=== PATIENT | female | born 1955 | race African-American/Black ===

== ENCOUNTER 2017-03-01 18:42 | Observation (INO) ==
[2017-03-01] MEDS ORDERED: FUROSEMIDE 100 MG/10 ML VIAL IV STA (19:05)
[2017-03-01] MEDS ORDERED: methylPREDNISolone SOD SUC 125 MG/2 ML VIAL IV STA (19:05)
--- NOTE | 2017-03-01 19:09 | EKG Report ---
Stationary ECG Study [facility] ER Test Date: 03/01/2017 6:57:15 PM Pat Name: ERUM LYNN Department: Room: Gender: F [employer] Operator: : [id number] Requested by: Gee Lucio Order Number: [id number] Reading MD: AMILCAR HAY Intervals Hardy Rate: 85 P: 69 NH: 138 QRS: 59 QRSD: 79 T: 64 QT: 373 QTc: 415 Interpretive Statements SINUS RHYTHM Electronically Signed On 03-01-17 19:25:10 CDT by AMILCAR HAY [email or web address]
[2017-03-01 19:23] LABS: Basophils % 0.2 % (0.0-0.8); Eosinophils # 0.1 10*3/uL (0.0-0.87); Eosinophils % 3.2 % (0.00-10.9); Hematocrit 27.8 VOL% (35.7-47.0); Hemoglobin 8.2 GM/DL (12.0-16.0); Immature Granulocytes % 0.2 %; Immature Granulocytes Absolute 0.01 #; Lymphocytes % 23.6 % (21.3-54.2); Mean Corpuscular HGB Conc 29.5 GM/DL (32-36); Mean Corpuscular Hemoglobin 25 PG (27-34); Mean Corpuscular Volume 85.3 FL (87-102); Mean Platelet Volume 9.4 FL (9.6-12.0); Monocytes # 0.5 10*3/uL (0.11-0.8); Neutrophils # 2.7 10*3/uL (1.4-7.4); Neutrophils % 61.8 % (38.7-73.9); Platelet Count 176 T/CUMM (130-400); Red Blood Count 3.26 MC/CUMM (3.8-5.5); Red Cell Distribution Width 18.1 % (9.3-17.3); White Blood Count 4.4 T/CUMM (4-12)
[2017-03-01] MEDS ORDERED: ALBUTEROL 2.5 MG/3 ML NEB RESP TX SCH (19:30)
[2017-03-01 19:35] LABS: D-Dimer 0.8 MG/L FEU; INR 1.1; PT Patient Result 11.4 SECS
[2017-03-01] MEDS ORDERED: methylPREDNISolone SOD SUC 125 MG/2 ML VIAL ONE (19:41)
[2017-03-01] MEDS ORDERED: FUROSEMIDE 40 MG/4 ML VIAL ONE (19:41)
[2017-03-01 19:44] LABS: Alanine Aminotransferase 19 U/L (13-56); Albumin 2.6 G/DL (3.4-5.0); Alkaline Phosphatase 588 U/L (45-117); Aspartate Amino Transferase 34 U/L (0-37); Bilirubin,Total < 0.39 MG/DL (0.2-1.0); Blood Urea Nitrogen 9 MG/DL (7-18); Calcium 7.2 MG/DL (8.5-10.1); Glucose 72 MG/DL (74-106); Potassium 3.8 MMOL/L (3.5-5.1); Sodium 143 MMOL/L (136-145); Total Protein 5.6 G/DL (6.4-8.3); Troponin I Only < 0.015 NG/ML (0.00-0.045)
--- NOTE | 2017-03-01 19:46 | Emergency Department Note ---
Rosanna Santos Rolonda, am scribing for, and in the presence of, Gee Evans MD 19:14. Cristina Santos Charles R, MD, personally performed the services described in this documentation, ascribed by Jose Ramon Marte in my presence, and it is both accurate and complete [id number] . Arrival - Arrival Chief Complaint: Shortness of Breath Stated Complaint: cant breathe ED Nursing Triage Note: reports cant catch her breath for the past five days. denies pain other than her back pain Mode of Arrival: Wheelchair Limitations: No Limitations Source: Patient, Old Records Reviewed, RN Notes Reviewed Time Seen by Provider: 03/01/17 18:57 - History of Present Illness HPI Narrative: Pt is a 61 y/o female who presents to the ED via wheelchair with c/o SOB with an onset of days ago. Pt has a PMHx of Chemotherapy, Parathyroid Issues, and currently f/u with PCP in [place] for Pancreatic Cancer. She states that the SOB worsens while laying supine. Daughter states that pt had a previous bone scan, which was negative, and a scan in the leg for blood clots. Pt denies being a smoker. No other complaint/pain in ED. Onset (ago): day(s) Consistency: constant Severity: moderate Severity scale (1-10): 4 Date of Last Menstrual Period: menopause Allergies/Adverse Reactions: Allergies Allergy/AdvReac Type Severity Reaction Status Date / Time Sulfa (Sulfonamide Allergy Unknown/Unable Verified 09/01/15 12:46 Antibiotics) to obtain aspirin AdvReac Nausea Verified 09/01/15 12:46 Iodinated Contrast Media - AdvReac ANAPHYLAXIS Verified 09/01/15 12:46 Oral and Home Medications: Home Medications Medication Instructions Recorded Confirmed Type Lubiprostone [Amitiza] 24 mcg PO BID 05/15/15 03/01/17 History Magnesium Oxide [Magox 400] 400 mg PO BID 05/15/15 03/01/17 History Morphine Sulfate [Morphine Sulfate 30 mg PO BID 05/15/15 03/01/17 History ER] Ondansetron HCl 8 mg PO Q8HR PRN 05/15/15 03/01/17 History Oxycodone HCl/Acetaminophen 1 each PO Q4-6H PRN 05/15/15 03/01/17 History [Oxycodone-Acetaminophen 10-325] Pantoprazole Sodium [Protonix] 40 mg PO DAILY 05/15/15 03/01/17 History Potassium Chloride Cap/Tab [K Dur] 10 meq PO DAILY 05/15/15 03/01/17 History Sertraline [Zoloft] 200 mg PO DAILY 05/15/15 03/01/17 History Tolterodine Tartrate [Tolterodine 2 mg PO BID 05/15/15 03/01/17 History Tartrate ER] Trazodone HCl 100 mg PO BEDTIME 05/15/15 03/01/17 History Polyethylene Glycol Powder 1 packet PO BID 09/06/15 03/01/17 History [Miralax] Tamsulosin [Flomax] 0.4 mg PO BEDTIME 08/31/16 03/01/17 History fentaNYL [Fentanyl 100 mcg/hr 100 mcg TRANSDERM Q3DAY 09/03/16 03/01/17 History Patch] Gabapentin 600 mg PO BID 03/01/17 03/01/17 History Review of System - Review of System 12 point system: reviewed and no additional remarkable complaints except as stated - Review of System Constitutional: Absent: chills, fever Head/Ears/Nose/Throat: Absent: earache, epistaxis Respiratory: Present: respiratory distress (SOB). Absent: cough Cardiovascular: Present: chest pain. Absent: palpitations, dyspnea on exertion Gastrointestinal: Absent: abdominal pain, nausea, vomiting, diarrhea Musculoskeletal: Absent: arm pain, back pain, leg pain, neck pain Skin: Absent: rash Neurological: Absent: headache, weakness Psychiatric: Absent: anxiety Medical,Surgical,& Family Hx - Medical History Psychological: History of: Depression Gastrointestinal: History of: Gastrointestinal Cancer (pancreatic cancer-2014 Dx ), GI Problems Musculoskeletal: History of: Musculoskeletal Problems Other: History of: Miscellaneous Medical Problems (09/03/16 Sched for Bone marrow Bx RAD Abnormal CT) - Surgical History Thoracic Surgeries: Patient denies;: Organ Transplant Abdominal Surgeries: Surgical HX of: Hernia Repair (Umbilical Hernia) - Family History Family History: Reports;: Family Cancer (mother and sister), Family Diabetes ( sister daughter), Family Hypertension (mother) - Social History Smoking Status: Never smoker Exam Vital Signs: Vital Signs Temperature 98.7 F 03/01/17 18:43 Pulse Rate 84 03/01/17 19:40 Respiratory Rate 18 03/01/17 19:40 Blood Pressure 118/58 03/01/17 18:43 O2 Sat by Pulse Oximetry 100 03/01/17 19:40 - General General appearance: alert, in no apparent distress - Head Head exam: Present: atraumatic, normocephalic - Eye Eye exam: Present: PERRL, EOMI - ENT ENT exam: Present: mucous membranes moist. Absent: mucous membranes dry - Neck Neck exam: Present: full ROM. Absent: tenderness - Chest Chest inspection: Present: symmetric chest wall rise. Absent: tenderness - Respiratory Respiratory exam: Present: accessory muscle use, rhonchi (at the base) - Cardiovascular Cardiovascular exam: Present: normal rhythm, tachycardia - Abdominal Exam Abdominal exam: Present: soft, normal bowel sounds. Absent: tenderness - Extremities Exam Extremities exam: Present: pedal edema (+1 lower extremities) - Back Exam Back exam: Present: full ROM. Absent: tenderness - Neurological Exam Neurological exam: Present: alert, oriented X3, CN II-XII intact - Psychiatric Psychiatric exam: Present: normal affect, normal mood - Skin Skin exam: Present: warm, dry, intact, normal color. Absent: rash Course - Consultations Consultation #1: Dr. Solano will admit for Dr. Barbosa Time: 22:27 Results - Labs CBC & BMP: 03/01/17 18:55 03/01/17 18:55 Lab Results: I have reviewed the patients labs Labs: Laboratory Tests 03/01/17 18:55 WBC 4.4 RBC 3.26 L Hgb 8.2 L Hct 27.8 L MCV 85.3 L MCH 25 L MCHC 29.5 L RDW 18.1 H MPV 9.4 L Lymph # (Auto) 1.0 L Laboratory Tests 03/01/17 03/01/17 18:55 18:55 INR 1.1 PT Patient/Control Mix 11.4 D-Dimer, Quantitative 0.8 Sodium 143 Potassium 3.8 Chloride 111 H Carbon Dioxide 24 BUN 9 GFR Calculation 95 Glucose 72 L Calcium 7.2 L Alkaline Phosphatase 588 H Total Protein 5.6 L Albumin 2.6 L Albumin/Globulin Ratio 0.8 L Laboratory Tests 03/01/17 19:05 Urine pH 7.0 Ur Specific Sage 1.005 Urine Protein Negative Urine Glucose (UA) Negative Urine Ketones Negative Urine Blood Negative Urine Nitrate Negative Urine Bilirubin Negative Urine Urobilinogen < 2.0 H Urine Leukocytes Negative Urine WBC <1 Ur Squamous Epith Cells Occasional Urine Mucus Occasional Ur Culture Indicated? Not indicated - Diagnostic Findings Procedure: Chest x-ray: report reviewed by me (No acute abnormality. ) Disposition Clinical Impression: Primary pancreatic cancer , Generalized weakness, Acute dyspnea, Anemia of chronic disease Case discussed with: patient, patient's family Disposition: Still a Patient Condition: Stable Time of Disposition: 22:28
--- NOTE | 2017-03-01 20:19 | XRay Report ---
PA and lateral chest. Indication: Shortness of breath. Comparison: September 01, 2015. The heart is normal in size. A subclavian line distal tip is in the right atrium. The pulmonary vasculature is normal. The lung carter are clear. There is interposition of colon above the liver. Surgical clips are noted in the left upper quadrant. Osseous structures are stable with increased sclerosis, particularly involving the vertebral column. Impression: No acute abnormality. PROCEDURE INTERPRETED AT [facility] DEPARTMENT OF RADIOLOGY Final Report Signed by: Dr. Neeru Moreira
[2017-03-01 20:41] LABS: Apearance,Urine CLEAR (Clear); Bilirubin,Urine Negative (Negative); Blood, Urine Negative (Negative); Glucose,Urine (UA) Negative (Negative); Ketones,Urine Negative (Negative); Mucus,Urine Occasional /LPF (Occasional); Nitrite,Urine Negative (Negative); Protein,Urine Negative; Squamous Epithelial Cell,Urine Occasional /HPF (0-10); Urine Color Colorless (Yellow); Urine Specific Gravity 1.005 (1.001-1.035); Urine Urobilinogen < 2.0 EU/DL (0.2-1.0); WBC,Urine <1 /HPF (0-6)
[2017-03-01] MEDS ORDERED: ONDANSETRON 4 MG/2 ML VIAL IV STA (21:31)
[2017-03-01] MEDS ORDERED: HYDROmorphone 2 MG/1 ML VIAL IV STA (21:31)
[2017-03-01] MEDS ORDERED: ONDANSETRON 4 MG/2 ML VIAL ONE (21:31)
[2017-03-01] MEDS ORDERED: HYDROmorphone 2 MG/1 ML VIAL ONE (21:31)
[2017-03-02] MEDS ORDERED: LACTULOSE 20 GM/30 ML UDCUP PO PRN (00:34)
[2017-03-02] MEDS ORDERED: MYLANTA/LIDO VISC 2:1 300 ML BOTTLE SWISH/SPIT PRN (00:34)
[2017-03-02] MEDS ORDERED: TEMAZEPAM 7.5 MG CAPSULE PO PRN (00:34)
[2017-03-02] MEDS ORDERED: BENZTROPINE 2 MG/2 ML AMP IV PRN (00:34)
[2017-03-02] MEDS ORDERED: ALPRAZolam 0.25 MG TABLET PO PRN (00:34)
[2017-03-02] MEDS ORDERED: MAGNESIUM HYDROXIDE SUSP 30 ML UDCUP PO PRN (00:34)
[2017-03-02] MEDS ORDERED: traMADol 50 MG TABLET PO PRN (00:34)
[2017-03-02] MEDS ORDERED: PROMETHAZINE INJ 25 MG in SODIUM CHLORIDE 0.9% 50 ML IV PRN (00:34)
[2017-03-02] MEDS ORDERED: chlorproMAZINE 25 MG TABLET PO PRN (00:34)
[2017-03-02] MEDS ORDERED: MYLANTA/LIDO VISC 2:1 300 ML BOTTLE SWISH/SWAL PRN (00:34)
[2017-03-02] MEDS ORDERED: SODIUM CHLORIDE 0.9% 250 ML IV PRN (00:34)
[2017-03-02] MEDS ORDERED: ONDANSETRON 4 MG/2 ML VIAL IV PRN (00:34)
[2017-03-02] MEDS ORDERED: ALUMINUM/MAGNES/SIMETH MAX STR 30 ML UDCUP PO PRN (00:34)
[2017-03-02] MEDS ORDERED: guaiFENesin 200 MG/10 ML UDCUP PO PRN (00:34)
[2017-03-02] MEDS ORDERED: diphenhydrAMINE CAP 25 MG CAPSULE PO PRN (00:34)
[2017-03-02] MEDS ORDERED: ACETAMINOPHEN 325 MG TABLET PO PRN (00:34)
[2017-03-02] MEDS ORDERED: ONDANSETRON 4 MG TABLET PO PRN (00:34)
[2017-03-02] MEDS ORDERED: chlorproMAZINE INJ 50 MG in SODIUM CHLORIDE 0.9% 100 ML IV PRN (00:34)
[2017-03-02] MEDS ORDERED: chlorproMAZINE INJ 25 MG in SODIUM CHLORIDE 0.9% 100 ML IV PRN (00:34)
[2017-03-02] MEDS ORDERED: LOPERAMIDE 2 MG CAPSULE PO PRN ×2 (00:34)
[2017-03-02] MEDS: oxyCODONE/ACETAMINOPHEN 5-325 MG TABLET PO PRN ×2 (02:24→07:37)
[2017-03-02] MEDS: SODIUM CHLORIDE 0.9% 1,000 ML IV SCH ×2 (02:26→17:09)
[2017-03-02 08:18] LABS: Basophils % 0.1 % (0.0-0.8); Hematocrit 35.1 VOL% (35.7-47.0); Hemoglobin 10.9 GM/DL (12.0-16.0); Immature Granulocytes % 0.4 %; Immature Granulocytes Absolute 0.03 #; Lymphocytes # 0.4 10*3/uL (1.4-4.0); Lymphocytes % 5.5 % (21.3-54.2); Mean Corpuscular HGB Conc 31.1 GM/DL (32-36); Mean Corpuscular Hemoglobin 26 PG (27-34); Mean Platelet Volume 9.6 FL (9.6-12.0); Monocytes # 0.3 10*3/uL (0.11-0.8); Monocytes % 4.1 % (1.7-12.7); Neutrophils # 6.3 10*3/uL (1.4-7.4); Neutrophils % 89.9 % (38.7-73.9); Platelet Count 188 T/CUMM (130-400); Red Blood Count 4.13 MC/CUMM (3.8-5.5); Red Cell Distribution Width 17.2 % (9.3-17.3); White Blood Count 7.1 T/CUMM (4-12)
[2017-03-02] MEDS ORDERED: fentaNYL 100 MCG/HR PATCH TRANSDERM SCH (09:00)
[2017-03-02] MEDS ORDERED: PANTOPRAZOLE 40 MG VIAL IV SCH (09:00)
[2017-03-02] MEDS: MORPHINE ER 30 MG TABLET PO SCH ×2 (09:07→20:49)
[2017-03-02] MEDS: MAGNESIUM OXIDE 400 MG TABLET PO SCH ×2 (09:07→20:48)
[2017-03-02] MEDS: SERTRALINE 100 MG TABLET PO SCH (09:07)
[2017-03-02] MEDS: PANTOPRAZOLE 40 MG TABLET PO SCH (09:07)
[2017-03-02] MEDS: POTASSIUM CHLORIDE 10 MEQ TABLET PO SCH (09:07)
[2017-03-02] MEDS: TOLTERODINE LA 2 MG CAPSULE PO SCH ×2 (09:07→20:52)
[2017-03-02] MEDS: LUBIPROSTONE 24 MCG CAPSULE PO SCH ×2 (09:08→20:48)
[2017-03-02] MEDS: GABAPENTIN 600 MG TABLET PO SCH ×2 (09:08→20:49)
[2017-03-02] MEDS: POLYETHYLENE GLYCOL POWDER 17 GM PACK PO SCH ×2 (09:08→20:51)
--- NOTE | 2017-03-02 09:23 | Oncology Progress Note ---
Oncology Subjective PN Interval history: Ms. Page was admitted earlier this morning for outpatient observation because of increasing dyspnea and because of the fact that she has new onset of her abdominal pain. She is on palliative chemotherapy for metastatic pancreatic cancer that she has had for approximately 2 years. She has bone metastases and she has been having pain from the bony metastases. She says she received chemotherapy and evidently, after further investigation, she is on Gemzar as a single agent. She has a history of elevated parathyroid hormone which could be related to her new abdominal pain.However, her serum calcium is low at 7.2 with a low serum albumin of 2.6. I note that her alkaline phosphatase is 588 today; it was 473 on February 13, 2017. She was admitted with hemoglobin of 8.2 and a normal white cell count 4400 with a platelet count of 176,000. She was evaluated for DVT recently. She was having dyspnea at home. Patient admitted with pancreatic cancer. She has a 2 year history of metastatic pancreatic cancer with bone metastasis. She is followed in [place] by her primary care physician. A chest x-ray done in the emergency room on the evening prior to this admission demonstrated no acute abnormalities. An EKG demonstrated a heart rate of 85 bpm with normal sinus rhythm and an essentially normal EKG. Following transfusion, her blood work includes a hemoglobin of 10.9 with a white cell count of 7100 and a platelet count of 188,000. Past medical history Allergies: Sulfa, aspirin, iodine. She has apparent metabolic bone disease that may or may not be related to hypercalcemia. She has a history of chronic anemia due to chemotherapy and her chronic illness She has problems with chronic nausea and occasional vomiting She has bone pain primarily in her hip felt to be due to metastatic disease Prior surgical history includes an umbilical hernia repair social history She has never smoked family history: Family history is positive for cancer in her mother and a sister, diabetes and a sister and her daughter and hypertension in her mother ROS General: No history of fever or chills. She has had nausea and decreased appetite. ENT: No history of epistaxis earaches or sinus infections Pulmonary: She has a history of upper chest pain has been going on for a while and appears to be chest wall pain. She says that she has not had a cough, sputum production or hemoptysis. Cardiovascular: No history of cardiac syncope, palpitations or cardiac pain. GI: She has abdominal pain that has recently become significant and accompanied by nausea but little vomiting and there is no GI bleeding, either upper or lower. Also no diarrhea currently. Musculoskeletal: She has a history of long-standing bone pain related to her metastatic disease. : No history of kidney stones dysuria or hematuria. Neurologic: No history of seizures, convulsions or paralysis. Psychiatric: Positive for depression but negative for acute psychiatric illness Physical examination: General: The patient appears chronically ill but actually does not appear to be in any acute distress. Eyes: Normal lids and conjunctivae. ENT: Her oral mucosa and pharynx are normal. Her trachea is midline. Her hearing is normal. Neck: Thyroid is normal. No neck masses. Lungs/chest: She is tender over the right upper anterior chest. I palpate no masses. Breath sounds are slightly coarse and there are couple of loud rhonchi that clear quickly after she takes a couple of deep breaths. Cardiovascular: Her heart rhythm is regular without murmur, gallop or rub. There is no jugular venous distention, clubbing, cyanosis or edema. Abdomen: She is tender over the entire upper epigastric, right upper quadrant and left upper quadrant region with normal bowel sounds. I palpate no ascites and I cannot definitely feel any masses but she is tender. Musculoskeletal: Generalized muscle weakness without focal muscle atrophy or bone or joint deformity. Neurologic: Cranial nerves II through XII are intact. There are no focal neurologic deficits. Nodes: I palpate no submandibular, anterior or posterior cervical, supraclavicular or axillary adenopathy. Skin: Cursory examination is normal. Psychiatric: She cannot remember some of the details of her treatment that she appears to be oriented and alert otherwise. Impression: Symptomatic anemia that has now improved with transfusion of red cells new onset upper abdominal pain pancreatic adenocarcinoma on palliative chemotherapy bone metastases with bone pain secondarily history of metabolic bone disease I am checking an amylase and lipase and will recheck lab work tomorrow. I will keep her on observation today but we may convert her to inpatient for further evaluation if the abdominal pain does not improve. There is some gastroenteritis that is going around but she is not having lower GI problems. Exam - Constitutional Vitals: Period Temp Pulse Resp BP Sys/Hyatt Pulse Ox Last 24 Hr 97 F-98.8 F 84-124 18-24 99-135/50-67 92-100 Results - Labs CBC & BMP: 03/02/17 08:05 03/01/17 18:55
[2017-03-02] MEDS: DEXT 5% NACL 0.45% KCL 20 MEQ 20 MEQ/1,000 ML BAG IV SCH ×2 (13:12→20:49)
[2017-03-02] MEDS: SUCRALFATE 1 GM/10 ML UDCUP PO SCH ×2 (17:12→20:49)
[2017-03-02] MEDS ORDERED: traZODone 50 MG TABLET PO SCH (21:00)
[2017-03-02] MEDS ORDERED: TAMSULOSIN 0.4 MG CAPSULE PO SCH (21:00)
[2017-03-03 05:16] LABS: Basophils % 0.2 % (0.0-0.8); Eosinophils # 0.1 10*3/uL (0.0-0.87); Eosinophils % 1.5 % (0.00-10.9); Hematocrit 33.5 VOL% (35.7-47.0); Hemoglobin 10.4 GM/DL (12.0-16.0); Immature Granulocytes % 0.4 %; Immature Granulocytes Absolute 0.02 #; Lymphocytes # 1.1 10*3/uL (1.4-4.0); Lymphocytes % 20.9 % (21.3-54.2); Mean Corpuscular Hemoglobin 26 PG (27-34); Mean Platelet Volume 9.7 FL (9.6-12.0); Monocytes # 0.5 10*3/uL (0.11-0.8); Monocytes % 8.5 % (1.7-12.7); Neutrophils # 3.6 10*3/uL (1.4-7.4); Neutrophils % 68.5 % (38.7-73.9); Platelet Count 177 T/CUMM (130-400); Red Blood Count 3.94 MC/CUMM (3.8-5.5); Red Cell Distribution Width 17.7 % (9.3-17.3); White Blood Count 5.3 T/CUMM (4-12)
[2017-03-03] MEDS: DEXT 5% NACL 0.45% KCL 20 MEQ 20 MEQ/1,000 ML BAG IV SCH (05:25)
[2017-03-03 05:42] LABS: Alanine Aminotransferase 20 U/L (13-56); Albumin 2.6 G/DL (3.4-5.0); Alkaline Phosphatase 609 U/L (45-117); Aspartate Amino Transferase 35 U/L (0-37); Bilirubin,Total < 0.39 MG/DL (0.2-1.0); Blood Urea Nitrogen 6 MG/DL (7-18); Glucose 116 MG/DL (74-106); Osmolality,Calculated 284.8 MOS/KG (273-304); Potassium 4.3 MMOL/L (3.5-5.1); Sodium 144 MMOL/L (136-145); Total Protein 5.3 G/DL (6.4-8.3)
[2017-03-03] MEDS: PANTOPRAZOLE 40 MG TABLET PO SCH (09:12)
[2017-03-03] MEDS: MORPHINE ER 30 MG TABLET PO SCH (09:12)
[2017-03-03] MEDS: SERTRALINE 100 MG TABLET PO SCH (09:12)
[2017-03-03] MEDS: LUBIPROSTONE 24 MCG CAPSULE PO SCH (09:13)
[2017-03-03] MEDS: MAGNESIUM OXIDE 400 MG TABLET PO SCH (09:13)
[2017-03-03] MEDS: POLYETHYLENE GLYCOL POWDER 17 GM PACK PO SCH (09:13)
[2017-03-03] MEDS: SUCRALFATE 1 GM/10 ML UDCUP PO SCH (09:13)
[2017-03-03] MEDS: GABAPENTIN 600 MG TABLET PO SCH (09:13)
[2017-03-03] MEDS: POTASSIUM CHLORIDE 10 MEQ TABLET PO SCH (09:13)
[2017-03-03] MEDS: TOLTERODINE LA 2 MG CAPSULE PO SCH (09:21)
--- NOTE | 2017-03-03 10:01 | Oncology Progress Note ---
Oncology Subjective PN Interval history: Ms. Page was admitted with increasing abdominal pain. This is improved although she continues to have some abdominal tenderness. She has metastatic pancreatic cancer with bone metastases and she has stable right upper anterior chest wall pain. The abdominal pain is of newer onset and it has improved. She has had no diarrhea and she has had no hematemesis, melena or hematochezia. I am going to instruct her to take Mylanta or Pepto-Bismol as needed since the Carafate seems to be improving her abdominal pain. She has bowel sounds. She winces before he even actually palpate her abdomen and I cannot check her abdomen well because of this. Her lungs are clear. Her heart sounds are normal. She is oriented and alert. She is clearly anxious but evidently this is long-standing. Vital signs are normal with a temp of 97.4, pulse of 82 and blood pressure 112/ 56. Respiratory rate 20. Lab work today includes a normal white cell count of 5300 with a platelet count of 177,000 and a hemoglobin that is low at 10.4 but improved over admission when it was 8.2. Amylase and lipase done yesterday were both normal. The alkaline phosphatase is 609 with an LDH was 283. The serum creatinine is 0.5. She has an appointment to see Dr. Barbosa later this month, around the but I am instructing her to call the office and talk with his nurse Saturday morning about moving the appointment. I have also told her that if she has further problems that she can return. Exam - Constitutional Vitals: Period Temp Pulse Resp BP Sys/Hyatt Pulse Ox Last 24 Hr 97.2 F-99.5 F 82-92 16-20 93-133/51-67 94-98 Results - Labs CBC & BMP: 03/03/17 04:45 03/03/17 04:45
[2017-03-03 11:02] VITALS: BP 103/59
[2017-03-03] MEDS ORDERED: HEPARIN LOCK FLUSH 500 UNIT/5 ML SYRINGE IV ONE (12:25)
== END 2017-03-03 12:48 | disposition home or self-care (01) ==
LOC: N.ED 18:42 → N.EDINP 18:42 → N.4E 03-02 00:38
PROVIDERS: ADMIT Specialist; ATTEND Specialist

== ENCOUNTER 2017-09-25 09:28 | Inpatient (IN) ==
[2017-09-25] MEDS ORDERED: ONDANSETRON 4 MG/2 ML VIAL IV STA ×2 (10:20→13:26)
[2017-09-25] MEDS ORDERED: SODIUM CHLORIDE 0.9% 1,000 ML IV STA (10:20)
[2017-09-25] MEDS ORDERED: HYDROmorphone 2 MG/1 ML VIAL ONE ×2 (11:00→12:06)
[2017-09-25] MEDS ORDERED: ONDANSETRON 4 MG/2 ML VIAL ONE ×2 (11:00→13:27)
[2017-09-25] MEDS: HYDROmorphone 2 MG/1 ML VIAL IV PRN ×5 (11:18→22:08)
[2017-09-25 11:28] LABS: Basophils % 0.1 % (0.0-0.8); Hematocrit 33.9 VOL% (35.7-47.0); Hemoglobin 10.5 GM/DL (12.0-16.0); Immature Granulocytes % 0.5 %; Immature Granulocytes Absolute 0.05 #; Lymphocytes # 0.7 10*3/uL (1.4-4.0); Lymphocytes % 6.4 % (21.3-54.2); Mean Corpuscular Hemoglobin 27 PG (27-34); Mean Corpuscular Volume 87.6 FL (87-102); Mean Platelet Volume 9.9 FL (9.6-12.0); Monocytes # 0.9 10*3/uL (0.11-0.8); Monocytes % 8.2 % (1.7-12.7); Neutrophils # 9.2 10*3/uL (1.4-7.4); Neutrophils % 84.8 % (38.7-73.9); Platelet Count 254 T/CUMM (130-400); Red Blood Count 3.87 MC/CUMM (3.8-5.5); Red Cell Distribution Width 15.4 % (9.3-17.3); White Blood Count 10.8 T/CUMM (4-12)
[2017-09-25 11:46] LABS: Apearance,Urine CLEAR (Clear); Bilirubin,Urine Negative (Negative); Blood, Urine Small mg/dL (Negative); Glucose,Urine (UA) Negative (Negative); Ketones,Urine 5 mg/dL (Negative); Nitrite,Urine Negative (Negative); Protein,Urine Negative; RBC,Urine 2 /HPF (0-4); Squamous Epithelial Cell,Urine Occasional /HPF (0-10); Urine Color Straw (Yellow); Urine Specific Gravity 1.006 (1.001-1.035); Urine Urobilinogen < 2.0 EU/DL (0.2-1.0); WBC,Urine <1 /HPF (0-6)
[2017-09-25 12:04] LABS: Bilirubin,Total 0.4 MG/DL (0.2-1.0); Calcium 8.2 MG/DL (8.5-10.1); Potassium 3.5 MMOL/L (3.5-5.1); Total Protein 6.2 G/DL (6.4-8.3)
[2017-09-25] MEDS ORDERED: LOPERAMIDE 2 MG CAPSULE PO PRN ×2 (14:45)
[2017-09-25] MEDS ORDERED: MYLANTA/LIDO VISC 2:1 300 ML BOTTLE SWISH/SWAL PRN (14:45)
[2017-09-25] MEDS ORDERED: ACETAMINOPHEN 325 MG TABLET PO PRN (14:45)
[2017-09-25] MEDS ORDERED: ONDANSETRON 4 MG/2 ML VIAL IV PRN (14:45)
[2017-09-25] MEDS ORDERED: MAGNESIUM HYDROXIDE SUSP 30 ML UDCUP PO PRN (14:45)
[2017-09-25] MEDS ORDERED: TEMAZEPAM 7.5 MG CAPSULE PO PRN (14:45)
[2017-09-25] MEDS ORDERED: guaiFENesin 200 MG/10 ML UDCUP PO PRN (14:45)
[2017-09-25] MEDS ORDERED: chlorproMAZINE INJ 50 MG in SODIUM CHLORIDE 0.9% 100 ML IV PRN (14:45)
[2017-09-25] MEDS ORDERED: ALPRAZolam 0.25 MG TABLET PO PRN (14:45)
[2017-09-25] MEDS ORDERED: diphenhydrAMINE CAP 25 MG CAPSULE PO PRN (14:45)
[2017-09-25] MEDS ORDERED: BENZTROPINE 2 MG/2 ML AMP IV PRN (14:45)
[2017-09-25] MEDS ORDERED: MYLANTA/LIDO VISC 2:1 300 ML BOTTLE SWISH/SPIT PRN (14:45)
[2017-09-25] MEDS ORDERED: LACTULOSE 20 GM/30 ML UDCUP PO PRN (14:45)
[2017-09-25] MEDS ORDERED: SODIUM PHOSPHATE ENEMA 133 ML BOTTLE RECTAL STA (14:45)
[2017-09-25] MEDS ORDERED: chlorproMAZINE 25 MG TABLET PO PRN (14:45)
[2017-09-25] MEDS ORDERED: ALUMINUM/MAGNES/SIMETH MAX STR 30 ML UDCUP PO PRN (14:45)
[2017-09-25] MEDS ORDERED: chlorproMAZINE INJ 25 MG in SODIUM CHLORIDE 0.9% 100 ML IV PRN (14:45)
[2017-09-25] MEDS ORDERED: traMADol 50 MG TABLET PO PRN (14:45)
[2017-09-25] MEDS ORDERED: HYDROmorphone 2 MG/1 ML VIAL IV SCH (15:30)
[2017-09-25] MEDS: DEXTROSE 5% NACL 0.45% 1,000 ML IV SCH ×2 (15:37→23:42)
[2017-09-25] MEDS: PROMETHAZINE INJ 25 MG in SODIUM CHLORIDE 0.9% 50 ML IV PRN ×2 (16:07→22:10)
[2017-09-26] MEDS: HYDROmorphone 2 MG/1 ML VIAL IV PRN ×4 (00:52→16:30)
[2017-09-26] MEDS: PROMETHAZINE INJ 25 MG in SODIUM CHLORIDE 0.9% 50 ML IV PRN ×2 (04:06→10:40)
[2017-09-26] MEDS: DEXTROSE 5% NACL 0.45% 1,000 ML IV SCH ×3 (06:50→21:28)
[2017-09-26] MEDS ORDERED: MAGNESIUM SULF RIDER 4 GM in PREMIX 1 EACH IV ONE (08:29)
[2017-09-26] MEDS ORDERED: METHYLNALTREXONE 12 MG/0.6 ML VIAL SUBCUT ONE (08:33)
[2017-09-26] MEDS ORDERED: ONDANSETRON 4 MG TABLET PO PRN (08:34)
[2017-09-26] MEDS ORDERED: oxyCODONE/ACETAMINOPHEN 5-325 MG TABLET PO PRN (08:34)
[2017-09-26] MEDS ORDERED: PROMETHAZINE 25 MG TABLET PO SCH (09:00)
[2017-09-26] MEDS: TOLTERODINE 2 MG TABLET PO SCH ×2 (11:00→21:24)
[2017-09-26] MEDS: METOCLOPRAMIDE 10 MG TABLET PO SCH ×2 (11:00→21:21)
[2017-09-26] MEDS: LUBIPROSTONE 24 MCG CAPSULE PO SCH ×2 (11:00→21:22)
[2017-09-26] MEDS: GABAPENTIN 600 MG TABLET PO SCH ×2 (11:00→21:22)
[2017-09-26] MEDS: SERTRALINE 100 MG TABLET PO SCH (11:00)
[2017-09-26] MEDS: PANTOPRAZOLE 40 MG TABLET PO SCH (11:01)
[2017-09-26] MEDS: MORPHINE ER 30 MG TABLET PO SCH ×2 (11:01→21:22)
[2017-09-26] MEDS: MAGNESIUM OXIDE 400 MG TABLET PO SCH ×2 (11:01→21:22)
[2017-09-26] MEDS ORDERED: LACTULOSE 20 GM/30 ML UDCUP PO ONE (14:49)
[2017-09-26] MEDS: FONDAPARINUX 2.5 MG/0.5 ML SYRINGE SUBCUT SCH (16:24)
[2017-09-26] MEDS: CIPROFLOXACIN INJ 400 MG in PREMIX 1 EACH IV SCH (16:25)
[2017-09-26] MEDS: traZODone 50 MG TABLET PO SCH (21:22)
[2017-09-26] MEDS: PROMETHAZINE 25 MG TABLET PO PRN (21:22)
[2017-09-26] MEDS: TAMSULOSIN 0.4 MG CAPSULE PO SCH (21:22)
[2017-09-27 06:14] LABS: Basophils % 0.2 % (0.0-0.8); Eosinophils % 0.3 % (0.00-10.9); Hematocrit 35.2 VOL% (35.7-47.0); Hemoglobin 11.3 GM/DL (12.0-16.0); Immature Granulocytes % 0.6 %; Immature Granulocytes Absolute 0.07 #; Lymphocytes # 0.8 10*3/uL (1.4-4.0); Lymphocytes % 7.6 % (21.3-54.2); Mean Corpuscular HGB Conc 32.1 GM/DL (32-36); Mean Corpuscular Hemoglobin 27 PG (27-34); Mean Corpuscular Volume 84.6 FL (87-102); Mean Platelet Volume 10.1 FL (9.6-12.0); Monocytes # 1.3 10*3/uL (0.11-0.8); Neutrophils # 8.7 10*3/uL (1.4-7.4); Neutrophils % 79.3 % (38.7-73.9); Platelet Count 244 T/CUMM (130-400); Red Blood Count 4.16 MC/CUMM (3.8-5.5); Red Cell Distribution Width 15.4 % (9.3-17.3)
[2017-09-27 07:18] LABS: Albumin 2.8 G/DL (3.4-5.0); Bilirubin,Total 0.4 MG/DL (0.2-1.0); Calcium 8.3 MG/DL (8.5-10.1); Osmolality,Calculated 267.2 MOS/KG (273-304); Potassium 3.2 MMOL/L (3.5-5.1); Total Protein 5.8 G/DL (6.4-8.3)
[2017-09-27] MEDS: TOLTERODINE 2 MG TABLET PO SCH ×2 (10:00→22:04)
[2017-09-27] MEDS: PANTOPRAZOLE 40 MG TABLET PO SCH (10:00)
[2017-09-27] MEDS: GABAPENTIN 600 MG TABLET PO SCH ×2 (10:00→22:05)
[2017-09-27] MEDS: MAGNESIUM OXIDE 400 MG TABLET PO SCH ×2 (10:00→22:05)
[2017-09-27] MEDS: LUBIPROSTONE 24 MCG CAPSULE PO SCH ×2 (10:00→22:04)
[2017-09-27] MEDS: PROMETHAZINE 25 MG TABLET PO PRN (10:00)
[2017-09-27] MEDS: SERTRALINE 100 MG TABLET PO SCH (10:01)
[2017-09-27] MEDS: METOCLOPRAMIDE 10 MG TABLET PO SCH ×2 (10:01→22:05)
[2017-09-27] MEDS: CIPROFLOXACIN INJ 400 MG in PREMIX 1 EACH IV SCH ×2 (10:01→21:54)
[2017-09-27] MEDS: fentaNYL 12 MCG/HR PATCH TRANSDERM SCH (10:09)
[2017-09-27] MEDS: PANTOPRAZOLE 40 MG VIAL IV SCH (10:11)
[2017-09-27] MEDS: MORPHINE ER 30 MG TABLET PO SCH (10:11)
[2017-09-27] MEDS: PROMETHAZINE INJ 25 MG in SODIUM CHLORIDE 0.9% 50 ML IV PRN (14:46)
[2017-09-27] MEDS: FONDAPARINUX 2.5 MG/0.5 ML SYRINGE SUBCUT SCH (14:49)
[2017-09-27] MEDS: DEXTROSE 5% NACL 0.45% 1,000 ML IV SCH (17:46)
[2017-09-27] MEDS: HYDROmorphone 2 MG/1 ML VIAL IV PRN (21:53)
[2017-09-27] MEDS: traZODone 50 MG TABLET PO SCH (22:04)
[2017-09-27] MEDS: TAMSULOSIN 0.4 MG CAPSULE PO SCH (22:04)
[2017-09-28] MEDS: PROMETHAZINE INJ 25 MG in SODIUM CHLORIDE 0.9% 50 ML IV PRN (03:18)
[2017-09-28] MEDS: HYDROmorphone 2 MG/1 ML VIAL IV PRN ×3 (07:39→23:45)
[2017-09-28] MEDS: LUBIPROSTONE 24 MCG CAPSULE PO SCH ×2 (08:11→22:08)
[2017-09-28] MEDS: TOLTERODINE 2 MG TABLET PO SCH ×2 (08:11→22:08)
[2017-09-28] MEDS: SERTRALINE 100 MG TABLET PO SCH ×2 (08:12→14:26)
[2017-09-28] MEDS: METOCLOPRAMIDE 10 MG TABLET PO SCH ×2 (08:12→22:09)
[2017-09-28] MEDS: MAGNESIUM OXIDE 400 MG TABLET PO SCH ×2 (08:12→22:09)
[2017-09-28] MEDS: GABAPENTIN 600 MG TABLET PO SCH ×2 (08:12→22:09)
[2017-09-28] MEDS: PANTOPRAZOLE 40 MG VIAL IV SCH (08:52)
[2017-09-28] MEDS: DEXTROSE 5% NACL 0.45% 1,000 ML IV SCH (08:53)
[2017-09-28] MEDS: CIPROFLOXACIN INJ 400 MG in PREMIX 1 EACH IV SCH ×2 (08:53→22:10)
[2017-09-28] MEDS: PROMETHAZINE 25 MG TABLET PO PRN (14:28)
[2017-09-28] MEDS ORDERED: MORPHINE 2 MG/1 ML SYRINGE IV ONE (14:56)
[2017-09-28] MEDS: FONDAPARINUX 2.5 MG/0.5 ML SYRINGE SUBCUT SCH (15:35)
[2017-09-28] MEDS: traZODone 50 MG TABLET PO SCH (22:08)
[2017-09-28] MEDS: TAMSULOSIN 0.4 MG CAPSULE PO SCH (22:09)
[2017-09-29 05:23] LABS: Basophils % 0.3 % (0.0-0.8); Eosinophils # 0.2 10*3/uL (0.0-0.87); Eosinophils % 1.5 % (0.00-10.9); Hematocrit 37.4 VOL% (35.7-47.0); Hemoglobin 11.6 GM/DL (12.0-16.0); Immature Granulocytes % 0.3 %; Immature Granulocytes Absolute 0.03 #; Lymphocytes # 1.1 10*3/uL (1.4-4.0); Lymphocytes % 10.8 % (21.3-54.2); Mean Corpuscular Hemoglobin 27 PG (27-34); Mean Corpuscular Volume 86.4 FL (87-102); Mean Platelet Volume 9.9 FL (9.6-12.0); Monocytes # 1.2 10*3/uL (0.11-0.8); Monocytes % 12.5 % (1.7-12.7); Neutrophils # 7.4 10*3/uL (1.4-7.4); Neutrophils % 74.6 % (38.7-73.9); Platelet Count 263 T/CUMM (130-400); Red Blood Count 4.33 MC/CUMM (3.8-5.5); Red Cell Distribution Width 15.4 % (9.3-17.3); White Blood Count 9.9 T/CUMM (4-12)
[2017-09-29 06:02] LABS: Calcium 8.9 MG/DL (8.5-10.1); Osmolality,Calculated 272.8 MOS/KG (273-304); Potassium 3.2 MMOL/L (3.5-5.1)
[2017-09-29] MEDS: DEXTROSE 5% NACL 0.45% 1,000 ML IV SCH ×4 (07:34→20:20)
[2017-09-29] MEDS: HYDROmorphone 2 MG/1 ML VIAL IV PRN (08:21)
[2017-09-29] MEDS: PANTOPRAZOLE 40 MG VIAL IV SCH (08:22)
[2017-09-29] MEDS: CIPROFLOXACIN INJ 400 MG in PREMIX 1 EACH IV SCH ×2 (08:23→20:22)
[2017-09-29] MEDS: SERTRALINE 100 MG TABLET PO SCH (08:25)
[2017-09-29] MEDS: TOLTERODINE 2 MG TABLET PO SCH ×2 (10:32→20:21)
[2017-09-29] MEDS: GABAPENTIN 600 MG TABLET PO SCH ×2 (10:32→20:22)
[2017-09-29] MEDS: LUBIPROSTONE 24 MCG CAPSULE PO SCH ×2 (10:32→20:22)
[2017-09-29] MEDS: MAGNESIUM OXIDE 400 MG TABLET PO SCH ×2 (10:32→20:21)
[2017-09-29] MEDS: METOCLOPRAMIDE 10 MG TABLET PO SCH ×2 (10:33→20:21)
[2017-09-29] MEDS ORDERED: POTASSIUM CHLORIDE 20 MEQ TABLET PO ONE (13:57)
[2017-09-29] MEDS: FONDAPARINUX 2.5 MG/0.5 ML SYRINGE SUBCUT SCH (15:35)
[2017-09-29] MEDS: TAMSULOSIN 0.4 MG CAPSULE PO SCH (20:21)
[2017-09-29] MEDS: traZODone 50 MG TABLET PO SCH (20:21)
[2017-09-29] MEDS: PROMETHAZINE INJ 25 MG in SODIUM CHLORIDE 0.9% 50 ML IV PRN (21:11)
[2017-09-30] MEDS: fentaNYL 12 MCG/HR PATCH TRANSDERM SCH (08:34)
[2017-09-30] MEDS: DEXTROSE 5% NACL 0.45% 1,000 ML IV SCH (08:34)
[2017-09-30] MEDS: PANTOPRAZOLE 40 MG VIAL IV SCH (08:34)
[2017-09-30] MEDS: SERTRALINE 100 MG TABLET PO SCH (08:42)
[2017-09-30] MEDS: CIPROFLOXACIN INJ 400 MG in PREMIX 1 EACH IV SCH (08:42)
[2017-09-30] MEDS: METOCLOPRAMIDE 10 MG TABLET PO SCH (08:42)
[2017-09-30] MEDS: TOLTERODINE 2 MG TABLET PO SCH (08:42)
[2017-09-30] MEDS: GABAPENTIN 600 MG TABLET PO SCH (08:42)
[2017-09-30] MEDS: MAGNESIUM OXIDE 400 MG TABLET PO SCH (08:42)
[2017-09-30] MEDS: LUBIPROSTONE 24 MCG CAPSULE PO SCH (08:42)
[2017-09-30] MEDS ORDERED: HEPARIN LOCK FLUSH 500 UNIT/5 ML SYRINGE IV ONE (11:06)
[2017-09-30 12:01] VITALS: BP 118/77
== END 2017-09-30 16:00 | disposition home or self-care (01) | DRG 392 ==
LOC: N.ED 09:28 → N.EDINP 09:28 → N.4E 14:24
PROVIDERS: ADMIT Specialist; ATTEND Specialist

== ENCOUNTER 2018-04-18 08:03 | Inpatient (IN) ==
[2018-04-18 08:49] LABS: Basophils % 0.2 % (0.0-0.8); Hematocrit 40.9 VOL% (35.7-47.0); Hemoglobin 13.5 GM/DL (12.0-16.0); Immature Granulocytes % 0.3 %; Immature Granulocytes Absolute 0.03 #; Lymphocytes # 0.9 10*3/uL (1.4-4.0); Lymphocytes % 10.1 % (21.3-54.2); Mean Corpuscular Hemoglobin 30 PG (27-34); Mean Corpuscular Volume 89.7 FL (87-102); Mean Platelet Volume 10.8 FL (9.6-12.0); Monocytes # 0.3 10*3/uL (0.11-0.8); Monocytes % 3.4 % (1.7-12.7); Neutrophils # 7.8 10*3/uL (1.4-7.4); Platelet Count 333 T/CUMM (130-400); Red Blood Count 4.56 MC/CUMM (3.8-5.5); Red Cell Distribution Width 13.7 % (9.3-17.3)
[2018-04-18] MEDS ORDERED: ONDANSETRON 4 MG/2 ML VIAL IV ONE (08:50)
[2018-04-18] MEDS ORDERED: SODIUM CHLORIDE 0.9% 1,000 ML IV STA ×2 (08:50→10:10)
[2018-04-18] MEDS ORDERED: MORPHINE 4 MG/1 ML VIAL IV STA ×3 (08:50→10:04)
[2018-04-18 09:07] LABS: Albumin 2.9 G/DL (3.4-5.0); Bilirubin,Total 0.6 MG/DL (0.2-1.0); Osmolality,Calculated 283.3 MOS/KG (273-304); Potassium 3.4 MMOL/L (3.5-5.1); Total Protein 6.6 G/DL (6.4-8.3)
[2018-04-18 09:12] LABS: Lactic Acid 1.8 MMOL/L (0.4-2.0)
[2018-04-18] MEDS ORDERED: HALOPERIDOL 5 MG/ML AMP IV STA (09:14)
[2018-04-18] MEDS ORDERED: HALOPERIDOL 5 MG/ML AMP IM STA (09:16)
[2018-04-18] MEDS ORDERED: HALOPERIDOL 5 MG/ML AMP ONE (09:17)
[2018-04-18] MEDS ORDERED: POTASSIUM CHLORIDE 20 MEQ TABLET PO STA (09:54)
[2018-04-18 10:52] LABS: Apearance,Urine CLEAR (Clear); Bilirubin,Urine Negative (Negative); Blood, Urine Small mg/dL (Negative); Glucose,Urine (UA) 50 mg/dL (Negative); Ketones,Urine 20 mg/dL (Negative); Mucus,Urine Occasional /LPF (Occasional); Nitrite,Urine Negative (Negative); Protein,Urine Negative; RBC,Urine 1 /HPF (0-4); Urine Specific Gravity 1.005 (1.001-1.035); Urine Urobilinogen < 2.0 EU/DL (0.2-1.0)
[2018-04-18 10:54] LABS: Urine Color Light Yellow (Yellow)
[2018-04-18] MEDS ORDERED: PROMETHAZINE 25 MG/1 ML VIAL IM PRN (11:54)
[2018-04-18] MEDS ORDERED: hydrOXYzine HCL 25 MG/1 ML VIAL IM PRN (12:00)
[2018-04-18] MEDS ORDERED: MAGNESIUM SULF RIDER 2 GM in PREMIX 1 EACH IV PRN (12:12)
[2018-04-18] MEDS ORDERED: MAGNESIUM SULF RIDER 4 GM in PREMIX 1 EACH IV PRN (12:12)
[2018-04-18] MEDS ORDERED: PANTOPRAZOLE 40 MG VIAL IV SCH (13:00)
[2018-04-18] MEDS: SERTRALINE 100 MG TABLET PO SCH (13:24)
[2018-04-18] MEDS: METOCLOPRAMIDE 10 MG/2 ML VIAL IV SCH ×2 (13:26→17:54)
[2018-04-18] MEDS: SODIUM CHLORIDE 0.9% 1,000 ML IV SCH (13:33)
[2018-04-18] MEDS: MORPHINE 4 MG/1 ML VIAL IV PRN ×3 (14:13→20:33)
[2018-04-18] MEDS: QUEtiapine 25 MG TABLET PO SCH ×2 (14:51→21:41)
[2018-04-18] MEDS: ALBUTEROL 2.5 MG/3 ML NEB RESP TX SCH ×2 (14:55→19:05)
[2018-04-18] MEDS: ONDANSETRON 4 MG/2 ML VIAL IV PRN (17:02)
[2018-04-18] MEDS: METOPROLOL TARTRATE 5 MG/5 ML VIAL IV PRN (17:56)
[2018-04-18] MEDS: POTASSIUM CHLORIDE RIDER 10 MEQ in PREMIX 1 EACH IV PRN ×3 (20:33→22:51)
[2018-04-18] MEDS: PANTOPRAZOLE 40 MG VIAL IV SCH (20:33)
[2018-04-18] MEDS ORDERED: ENOXAPARIN 40 MG/0.4 ML SYRINGE SUBCUT SCH (21:00)
[2018-04-18] MEDS: COLESTIPOL 1 GM TABLET PO SCH (21:40)
[2018-04-18] MEDS: BUDESONIDE/FORMOTEROL 160-4.5 INHALER 6 GM INH SCH (21:41)
[2018-04-19] MEDS: METOCLOPRAMIDE 10 MG/2 ML VIAL IV SCH ×4 (00:31→20:34)
[2018-04-19] MEDS: MORPHINE 4 MG/1 ML VIAL IV PRN ×6 (00:31→19:04)
[2018-04-19] MEDS: SODIUM CHLORIDE 0.9% 1,000 ML IV SCH ×3 (00:34→13:05)
[2018-04-19 06:48] LABS: Basophils % 0.1 % (0.0-0.8); Hematocrit 38.6 VOL% (35.7-47.0); Hemoglobin 12.3 GM/DL (12.0-16.0); Immature Granulocytes % 0.3 %; Immature Granulocytes Absolute 0.03 #; Lymphocytes # 0.9 10*3/uL (1.4-4.0); Lymphocytes % 9.9 % (21.3-54.2); Mean Corpuscular HGB Conc 31.9 GM/DL (32-36); Mean Corpuscular Hemoglobin 29 PG (27-34); Mean Corpuscular Volume 90.8 FL (87-102); Mean Platelet Volume 11.4 FL (9.6-12.0); Monocytes % 10.4 % (1.7-12.7); Neutrophils # 7.3 10*3/uL (1.4-7.4); Neutrophils % 79.3 % (38.7-73.9); Platelet Count 264 T/CUMM (130-400); Red Blood Count 4.25 MC/CUMM (3.8-5.5); Red Cell Distribution Width 13.9 % (9.3-17.3); White Blood Count 9.2 T/CUMM (4-12)
[2018-04-19] MEDS: ALBUTEROL 2.5 MG/3 ML NEB RESP TX SCH ×4 (07:00→19:30)
[2018-04-19 07:14] LABS: Calcium 8.1 MG/DL (8.5-10.1); Osmolality,Calculated 270.8 MOS/KG (273-304); Potassium 3.7 MMOL/L (3.5-5.1); Risk Ratio 2.16; Thyroid Stimulating Hormone 0.646 uIU/ml (0.358-3.74); VLDL CHOLESTEROL 20.8 MG/DL
[2018-04-19] MEDS ORDERED: PANTOPRAZOLE 40 MG TABLET PO SCH (09:00)
[2018-04-19] MEDS: SERTRALINE 100 MG TABLET PO SCH (10:01)
[2018-04-19] MEDS: QUEtiapine 25 MG TABLET PO SCH ×3 (10:01→20:52)
[2018-04-19] MEDS: PANTOPRAZOLE 40 MG VIAL IV SCH ×2 (10:01→20:52)
[2018-04-19] MEDS: COLESTIPOL 1 GM TABLET PO SCH (10:01)
[2018-04-19] MEDS: BUDESONIDE/FORMOTEROL 160-4.5 INHALER 6 GM INH SCH ×2 (10:31→20:59)
[2018-04-19] MEDS: METOPROLOL TARTRATE 5 MG/5 ML VIAL IV PRN (12:02)
[2018-04-19] MEDS: CARVEDILOL 12.5 MG TABLET PO SCH ×2 (13:42→20:52)
[2018-04-19 14:23] LABS: Calcium 8.2 MG/DL (8.5-10.1); Osmolality,Calculated 273.7 MOS/KG (273-304); Potassium 3.9 MMOL/L (3.5-5.1)
[2018-04-19 14:24] LABS: CKMB % 2.6 %
[2018-04-19 14:25] LABS: Troponin I 0.79 NG/ML (0.00-0.045)
[2018-04-19 14:31] LABS: ABG PCO2 34.5 MM HG (35-48); ABG PH 7.408 (7.35-7.45)
[2018-04-19 14:37] LABS: ABG Base Excess -2.2 MMOL/L (-2.5-2.5); ABG HCO3 22.5 MMOL/L (20-26); ABG Oxygen Saturation 95.2 % (95-100); ABG TCO2 18.8 MMOL/L (23-27)
[2018-04-19] MEDS: ENOXAPARIN 60 MG/0.6 ML SYRINGE SUBCUT SCH (15:59)
[2018-04-19] MEDS: ONDANSETRON 4 MG/2 ML VIAL IV PRN (17:34)
[2018-04-19 20:24] LABS: Troponin I 0.662 NG/ML (0.00-0.045)
[2018-04-19] MEDS: CHOLESTYRAMINE 4 GM PACK PO SCH (20:51)
[2018-04-20] MEDS: MORPHINE 4 MG/1 ML VIAL IV PRN ×5 (00:04→21:48)
[2018-04-20] MEDS: METOCLOPRAMIDE 10 MG/2 ML VIAL IV SCH ×4 (01:00→17:29)
[2018-04-20 02:52] LABS: Troponin I 0.502 NG/ML (0.00-0.045)
[2018-04-20] MEDS: ENOXAPARIN 60 MG/0.6 ML SYRINGE SUBCUT SCH ×2 (03:55→17:28)
[2018-04-20] MEDS: METOPROLOL TARTRATE 5 MG/5 ML VIAL IV PRN (05:13)
[2018-04-20] MEDS: ALBUTEROL 2.5 MG/3 ML NEB RESP TX SCH ×4 (07:23→19:32)
[2018-04-20] MEDS: SODIUM CHLORIDE 0.9% 1,000 ML IV SCH ×2 (12:40→17:21)
[2018-04-20] MEDS: CARVEDILOL 12.5 MG TABLET PO SCH ×2 (13:04→21:58)
[2018-04-20] MEDS: PANTOPRAZOLE 40 MG VIAL IV SCH ×2 (13:05→21:54)
[2018-04-20] MEDS: CHOLESTYRAMINE 4 GM PACK PO SCH ×2 (13:05→21:57)
[2018-04-20] MEDS: SERTRALINE 100 MG TABLET PO SCH (13:06)
[2018-04-20] MEDS: QUEtiapine 25 MG TABLET PO SCH ×3 (13:06→21:58)
[2018-04-20] MEDS: ONDANSETRON 4 MG/2 ML VIAL IV PRN ×2 (13:09→19:55)
[2018-04-20] MEDS: BUDESONIDE/FORMOTEROL 160-4.5 INHALER 6 GM INH SCH ×2 (13:14→22:02)
[2018-04-21] MEDS: METOCLOPRAMIDE 10 MG/2 ML VIAL IV SCH ×3 (00:58→13:42)
[2018-04-21] MEDS: MORPHINE 4 MG/1 ML VIAL IV PRN ×2 (06:24→12:35)
[2018-04-21] MEDS: ENOXAPARIN 60 MG/0.6 ML SYRINGE SUBCUT SCH (06:32)
[2018-04-21] MEDS: SODIUM CHLORIDE 0.9% 1,000 ML IV SCH (06:33)
[2018-04-21] MEDS: ALBUTEROL 2.5 MG/3 ML NEB RESP TX SCH ×2 (07:40→11:30)
[2018-04-21] MEDS: CARVEDILOL 12.5 MG TABLET PO SCH (09:23)
[2018-04-21] MEDS: SERTRALINE 100 MG TABLET PO SCH (09:23)
[2018-04-21] MEDS: CHOLESTYRAMINE 4 GM PACK PO SCH (09:23)
[2018-04-21] MEDS: QUEtiapine 25 MG TABLET PO SCH (09:23)
[2018-04-21] MEDS: PANTOPRAZOLE 40 MG VIAL IV SCH (09:24)
[2018-04-21] MEDS: BUDESONIDE/FORMOTEROL 160-4.5 INHALER 6 GM INH SCH (09:24)
[2018-04-21 11:27] VITALS: BP 91/58
[2018-04-21] MEDS ORDERED: TUBERCULIN SKIN TEST 0.1 ML SYRINGE INTRADERM ONE (14:00)
== END 2018-04-21 14:41 | DRG 440 ==
LOC: N.ED 08:03 → N.EDINP 10:34 → SUATTDRO 10:34 → N.2E 11:00
PROVIDERS: ADMIT Hospitalist; ATTEND Internal Medicine

== ENCOUNTER 2018-07-24 17:42 | Inpatient (IN) ==
[2018-07-24 18:27] LABS: Basophils % 0.4 % (0.0-0.8); Eosinophils # 0.2 10*3/uL (0.0-0.87); Eosinophils % 3.2 % (0.00-10.9); Hematocrit 33.2 VOL% (35.7-47.0); Immature Granulocytes % 0.4 %; Immature Granulocytes Absolute 0.02 #; Lymphocytes # 1.2 10*3/uL (1.4-4.0); Lymphocytes % 20.1 % (21.3-54.2); Mean Corpuscular HGB Conc 30.1 GM/DL (32-36); Mean Corpuscular Hemoglobin 29 PG (27-34); Mean Corpuscular Volume 95.7 FL (87-102); Mean Platelet Volume 10.1 FL (9.6-12.0); Monocytes # 0.4 10*3/uL (0.11-0.8); Monocytes % 7.5 % (1.7-12.7); Neutrophils # 3.9 10*3/uL (1.4-7.4); Neutrophils % 68.4 % (38.7-73.9); Platelet Count 204 T/CUMM (130-400); Red Blood Count 3.47 MC/CUMM (3.8-5.5); Red Cell Distribution Width 15.1 % (9.3-17.3); White Blood Count 5.7 T/CUMM (4-12)
[2018-07-24 18:45] LABS: Alanine Aminotransferase 21 U/L (13-56); Albumin 2.3 G/DL (3.4-5.0); Alkaline Phosphatase 114 U/L (45-117); Aspartate Amino Transferase 21 U/L (0-37); Bilirubin,Total < 0.39 MG/DL (0.2-1.0); Blood Urea Nitrogen 11 MG/DL (7-18); Calcium 7.9 MG/DL (8.5-10.1); Glucose 100 MG/DL (74-106); Osmolality,Calculated 281.1 MOS/KG (273-304); Potassium 4.4 MMOL/L (3.5-5.1); Sodium 142 MMOL/L (136-145); Total Protein 4.7 G/DL (6.4-8.3)
[2018-07-24 19:47] LABS: Apearance,Urine CLEAR (Clear); Bilirubin,Urine Negative (Negative); Blood, Urine Negative (Negative); Glucose,Urine (UA) Negative (Negative); Ketones,Urine Negative (Negative); Nitrite,Urine Negative (Negative); Protein,Urine Negative; RBC,Urine <1 /HPF (0-4); Squamous Epithelial Cell,Urine Occasional /HPF (0-10); Urine Color Yellow (Yellow); Urine Specific Gravity 1.013 (1.001-1.035); Urine Urobilinogen < 2.0 EU/DL (0.2-1.0); WBC,Urine <1 /HPF (0-6)
[2018-07-24] MEDS ORDERED: methylPREDNISolone SOD SUC 125 MG/2 ML VIAL IV STA (20:38)
[2018-07-24] MEDS ORDERED: ALBUTEROL/IPRATROPIUM 3 ML NEB RESP TX STA (20:38)
[2018-07-24] MEDS ORDERED: ACETAMINOPHEN 325 MG TABLET PO PRN (23:14)
[2018-07-24] MEDS ORDERED: MAGNESIUM HYDROXIDE SUSP 30 ML UDCUP PO PRN (23:14)
[2018-07-25] MEDS: TAMSULOSIN 0.4 MG CAPSULE PO SCH ×2 (00:41→22:05)
[2018-07-25] MEDS: TOLTERODINE 2 MG TABLET PO SCH ×3 (00:41→22:04)
[2018-07-25] MEDS: ENOXAPARIN 80 MG/0.8 ML SYRINGE SUBCUT SCH ×2 (00:41→12:17)
[2018-07-25] MEDS: DOCUSATE SODIUM 100 MG CAPSULE PO SCH ×3 (00:41→22:04)
[2018-07-25] MEDS: oxyCODONE/ACETAMINOPHEN 5-325 MG TABLET PO PRN ×4 (00:47→18:48)
[2018-07-25] MEDS ORDERED: INFLUENZA VIRUS VACCINE 0.5 ML SYRINGE IM ONE (02:16)
[2018-07-25 05:37] LABS: Basophils % 0.2 % (0.0-0.8); Eosinophils % 0.2 % (0.00-10.9); Hematocrit 32.6 VOL% (35.7-47.0); Hemoglobin 9.7 GM/DL (12.0-16.0); Immature Granulocytes % 0.4 %; Immature Granulocytes Absolute 0.02 #; Lymphocytes # 0.7 10*3/uL (1.4-4.0); Lymphocytes % 13.6 % (21.3-54.2); Mean Corpuscular HGB Conc 29.8 GM/DL (32-36); Mean Corpuscular Hemoglobin 28 PG (27-34); Mean Corpuscular Volume 95.6 FL (87-102); Mean Platelet Volume 10.6 FL (9.6-12.0); Monocytes # 0.1 10*3/uL (0.11-0.8); Monocytes % 1.3 % (1.7-12.7); Neutrophils % 84.3 % (38.7-73.9); Platelet Count 199 T/CUMM (130-400); Red Blood Count 3.41 MC/CUMM (3.8-5.5); Red Cell Distribution Width 14.9 % (9.3-17.3); White Blood Count 4.8 T/CUMM (4-12)
[2018-07-25 06:19] LABS: Bilirubin,Total 0.4 MG/DL (0.2-1.0); Calcium 7.6 MG/DL (8.5-10.1); Osmolality,Calculated 286.8 MOS/KG (273-304); Potassium 4.2 MMOL/L (3.5-5.1); Thyroid Stimulating Hormone 0.257 uIU/ml (0.358-3.74); Total Protein 4.8 G/DL (6.4-8.3)
[2018-07-25] MEDS: LUBIPROSTONE 24 MCG CAPSULE PO SCH ×2 (08:49→22:03)
[2018-07-25] MEDS: QUEtiapine 100 MG TABLET PO SCH ×2 (08:50→16:34)
[2018-07-25] MEDS: SERTRALINE 100 MG TABLET PO SCH (08:50)
[2018-07-25] MEDS: METOCLOPRAMIDE 10 MG TABLET PO SCH ×3 (08:50→22:05)
[2018-07-25] MEDS: MORPHINE ER 30 MG TABLET PO SCH ×2 (08:50→22:04)
[2018-07-25] MEDS: PANTOPRAZOLE 40 MG TABLET PO SCH (08:50)
[2018-07-25] MEDS ORDERED: ERGOCALCIFEROL 50,000 UNIT CAPSULE PO SCH (09:00)
[2018-07-25] MEDS: LORazepam 2 MG/1 ML VIAL IV PRN ×2 (09:03→15:25)
[2018-07-25] MEDS: FERROUS SULFATE 325 MG TABLET PO SCH ×2 (12:17→22:04)
[2018-07-25] MEDS ORDERED: QUEtiapine 100 MG TABLET PO SCH (21:00)
[2018-07-25] MEDS: ONDANSETRON 4 MG/2 ML VIAL IV PRN (23:32)
[2018-07-26] MEDS: LORazepam 2 MG/1 ML VIAL IV PRN ×3 (00:19→20:54)
[2018-07-26] MEDS: ENOXAPARIN 80 MG/0.8 ML SYRINGE SUBCUT SCH ×2 (04:04→18:20)
[2018-07-26] MEDS ORDERED: PROMETHAZINE 25 MG/1 ML VIAL IM ONE (05:32)
[2018-07-26 05:59] LABS: Basophils % 0.2 % (0.0-0.8); Hematocrit 34.6 VOL% (35.7-47.0); Hemoglobin 10.4 GM/DL (12.0-16.0); Immature Granulocytes % 0.6 %; Immature Granulocytes Absolute 0.05 #; Lymphocytes # 0.4 10*3/uL (1.4-4.0); Lymphocytes % 4.5 % (21.3-54.2); Mean Corpuscular HGB Conc 30.1 GM/DL (32-36); Mean Corpuscular Hemoglobin 28 PG (27-34); Mean Corpuscular Volume 93.8 FL (87-102); Mean Platelet Volume 10.7 FL (9.6-12.0); Monocytes # 0.4 10*3/uL (0.11-0.8); Neutrophils # 7.6 10*3/uL (1.4-7.4); Neutrophils % 89.7 % (38.7-73.9); Platelet Count 213 T/CUMM (130-400); Red Blood Count 3.69 MC/CUMM (3.8-5.5); Red Cell Distribution Width 14.9 % (9.3-17.3); White Blood Count 8.4 T/CUMM (4-12)
[2018-07-26 06:19] LABS: Calcium 7.7 MG/DL (8.5-10.1); Osmolality,Calculated 283.1 MOS/KG (273-304)
[2018-07-26 07:35] LABS: Hypochromasia 1+; Lymphocytes 5 % (20-55); Microcytosis Slight; Segmented Neutrophils 93 % (50-85); Total Cells Counted 100
[2018-07-26 07:36] LABS: Platelet Estimate Normal
[2018-07-26] MEDS ORDERED: METHYLNALTREXONE 12 MG/0.6 ML VIAL SUBCUT ONE (09:41)
[2018-07-26] MEDS: LUBIPROSTONE 24 MCG CAPSULE PO SCH ×2 (09:51→22:31)
[2018-07-26] MEDS: ONDANSETRON 4 MG/2 ML VIAL IV PRN ×2 (09:51→16:00)
[2018-07-26] MEDS: TOLTERODINE 2 MG TABLET PO SCH (09:52)
[2018-07-26] MEDS: SERTRALINE 100 MG TABLET PO SCH (09:52)
[2018-07-26] MEDS: DOCUSATE SODIUM 100 MG CAPSULE PO SCH ×2 (09:53→22:31)
[2018-07-26] MEDS: MORPHINE ER 30 MG TABLET PO SCH (09:53)
[2018-07-26] MEDS: METOCLOPRAMIDE 10 MG TABLET PO SCH ×2 (09:53→15:42)
[2018-07-26] MEDS: QUEtiapine 100 MG TABLET PO SCH (09:53)
[2018-07-26] MEDS: PANTOPRAZOLE 40 MG TABLET PO SCH (09:53)
[2018-07-26] MEDS: FERROUS SULFATE 325 MG TABLET PO SCH ×2 (09:53→22:31)
[2018-07-26] MEDS: oxyCODONE/ACETAMINOPHEN 5-325 MG TABLET PO PRN (12:25)
[2018-07-26] MEDS: SODIUM CHLORIDE 0.45% 1,000 ML IV SCH (14:51)
[2018-07-26] MEDS: TAMSULOSIN 0.4 MG CAPSULE PO SCH (22:31)
[2018-07-27] MEDS: LORazepam 2 MG/1 ML VIAL IV PRN (01:35)
[2018-07-27] MEDS: MORPHINE ER 30 MG TABLET PO SCH ×3 (05:23→21:01)
[2018-07-27] MEDS: METOCLOPRAMIDE 10 MG TABLET PO SCH ×4 (05:24→21:01)
[2018-07-27] MEDS: ENOXAPARIN 80 MG/0.8 ML SYRINGE SUBCUT SCH ×2 (05:24→13:52)
[2018-07-27] MEDS: QUEtiapine 100 MG TABLET PO SCH ×2 (05:24→21:01)
[2018-07-27] MEDS: SODIUM CHLORIDE 0.45% 1,000 ML IV SCH (05:25)
[2018-07-27] MEDS: SERTRALINE 100 MG TABLET PO SCH (08:22)
[2018-07-27] MEDS: TOLTERODINE 2 MG TABLET PO SCH (08:23)
[2018-07-27] MEDS: PANTOPRAZOLE 40 MG TABLET PO SCH (08:23)
[2018-07-27] MEDS: FERROUS SULFATE 325 MG TABLET PO SCH ×2 (08:23→21:03)
[2018-07-27] MEDS: LUBIPROSTONE 24 MCG CAPSULE PO SCH (08:23)
[2018-07-27] MEDS: DOCUSATE SODIUM 100 MG CAPSULE PO SCH (08:23)
[2018-07-27] MEDS: QUEtiapine 25 MG TABLET PO SCH (08:23)
[2018-07-27] MEDS ORDERED: ONDANSETRON ODT 4 MG TABLET PO PRN (09:18)
[2018-07-27] MEDS ORDERED: chlorproMAZINE INJ 50 MG in SODIUM CHLORIDE 0.9% 100 ML IV ONE (09:43)
[2018-07-27 09:56] LABS: Calcium 8.1 MG/DL (8.5-10.1); Osmolality,Calculated 268.1 MOS/KG (273-304); Potassium 3.3 MMOL/L (3.5-5.1)
[2018-07-27] MEDS ORDERED: MAGNESIUM SULF RIDER 2 GM in PREMIX 1 EACH IV PRN (10:13)
[2018-07-27] MEDS ORDERED: MAGNESIUM SULF RIDER 4 GM in PREMIX 1 EACH IV PRN (10:13)
[2018-07-27] MEDS: DEXTROSE 5% NACL 0.45% 1,000 ML IV SCH (10:58)
[2018-07-27] MEDS ORDERED: GRANISETRON 1 MG/1 ML VIAL IV ONE (11:00)
[2018-07-27] MEDS ORDERED: POTASSIUM PHOSPHATE 15 MMOL in SODIUM CHLORIDE 0.9% 100 ML IV ONE (12:00)
[2018-07-27] MEDS: oxyCODONE/ACETAMINOPHEN 5-325 MG TABLET PO PRN (17:40)
[2018-07-27] MEDS: POTASSIUM CHLORIDE RIDER 10 MEQ in PREMIX 1 EACH IV PRN (17:40)
[2018-07-27] MEDS: TAMSULOSIN 0.4 MG CAPSULE PO SCH (21:03)
[2018-07-28] MEDS: ENOXAPARIN 80 MG/0.8 ML SYRINGE SUBCUT SCH (03:27)
[2018-07-28] MEDS: POTASSIUM CHLORIDE RIDER 10 MEQ in PREMIX 1 EACH IV PRN ×2 (03:40→20:44)
[2018-07-28] MEDS ORDERED: LUBIPROSTONE 24 MCG CAPSULE PO SCH (09:00)
[2018-07-28] MEDS: FERROUS SULFATE 325 MG TABLET PO SCH ×2 (09:07→20:41)
[2018-07-28] MEDS: TOLTERODINE 2 MG TABLET PO SCH (09:07)
[2018-07-28] MEDS: MORPHINE ER 30 MG TABLET PO SCH ×2 (09:07→20:41)
[2018-07-28] MEDS: PANTOPRAZOLE 40 MG TABLET PO SCH (09:07)
[2018-07-28] MEDS: QUEtiapine 25 MG TABLET PO SCH (09:07)
[2018-07-28] MEDS: SERTRALINE 100 MG TABLET PO SCH (09:07)
[2018-07-28] MEDS: METOCLOPRAMIDE 10 MG TABLET PO SCH ×3 (09:08→20:40)
[2018-07-28 12:55] LABS: Free T4 (Free Thyroxine) 1.02 NG/DL (0.76-1.46)
[2018-07-28] MEDS: DEXTROSE 5% NACL 0.45% 1,000 ML IV SCH (19:14)
[2018-07-28] MEDS: TAMSULOSIN 0.4 MG CAPSULE PO SCH (20:41)
[2018-07-28] MEDS: QUEtiapine 100 MG TABLET PO SCH (20:41)
[2018-07-29] MEDS: POTASSIUM CHLORIDE RIDER 10 MEQ in PREMIX 1 EACH IV PRN (00:19)
[2018-07-29] MEDS: DEXTROSE 5% NACL 0.45% 1,000 ML IV SCH ×3 (00:59→14:40)
[2018-07-29] MEDS ORDERED: SODIUM CHLORIDE 0.9% 500 ML IV ONE ×2 (03:33→04:29)
[2018-07-29] MEDS: QUEtiapine 25 MG TABLET PO SCH (09:46)
[2018-07-29] MEDS: TOLTERODINE 2 MG TABLET PO SCH (09:46)
[2018-07-29] MEDS: FERROUS SULFATE 325 MG TABLET PO SCH ×2 (09:46→20:36)
[2018-07-29] MEDS: ENOXAPARIN 40 MG/0.4 ML SYRINGE SUBCUT SCH (09:47)
[2018-07-29] MEDS: METOCLOPRAMIDE 10 MG TABLET PO SCH (09:47)
[2018-07-29] MEDS: MORPHINE ER 30 MG TABLET PO SCH ×2 (09:47→23:31)
[2018-07-29] MEDS: PANTOPRAZOLE 40 MG TABLET PO SCH (09:48)
[2018-07-29] MEDS: SERTRALINE 100 MG TABLET PO SCH (09:51)
[2018-07-29] MEDS: LORazepam 2 MG/1 ML VIAL IV PRN (20:33)
[2018-07-29] MEDS: oxyCODONE/ACETAMINOPHEN 5-325 MG TABLET PO PRN (20:35)
[2018-07-29] MEDS: QUEtiapine 100 MG TABLET PO SCH (20:36)
[2018-07-29] MEDS: TAMSULOSIN 0.4 MG CAPSULE PO SCH (20:36)
[2018-07-30] MEDS: DEXTROSE 5% NACL 0.45% 1,000 ML IV SCH (01:36)
[2018-07-30] MEDS: LORazepam 2 MG/1 ML VIAL IV PRN (01:37)
[2018-07-30] MEDS: ENOXAPARIN 40 MG/0.4 ML SYRINGE SUBCUT SCH ×2 (09:15→09:18)
[2018-07-30] MEDS: FERROUS SULFATE 325 MG TABLET PO SCH (09:17)
[2018-07-30] MEDS: PANTOPRAZOLE 40 MG TABLET PO SCH (09:17)
[2018-07-30] MEDS: SERTRALINE 100 MG TABLET PO SCH (09:17)
[2018-07-30] MEDS: MORPHINE ER 30 MG TABLET PO SCH (09:18)
[2018-07-30] MEDS: TOLTERODINE 2 MG TABLET PO SCH (09:18)
[2018-07-30 16:29] VITALS: BP 101/73
== END 2018-07-30 17:30 | disposition home health service (06) | DRG 204 ==
LOC: N.ED 17:42 → N.5E 17:42 → SUATTDRO 07-25 14:03
PROVIDERS: ADMIT Internal Medicine; ATTEND Internal Medicine

== ENCOUNTER 2018-12-03 21:07 | Inpatient (IN) ==
[2018-12-03 22:47] LABS: Basophils % 0.3 % (0.0-0.8); Eosinophils % 0.1 % (0.00-10.9); Hematocrit 38.9 VOL% (35.7-47.0); Hemoglobin 11.7 GM/DL (12.0-16.0); Immature Granulocytes % 0.7 %; Immature Granulocytes Absolute 0.09 #; Lymphocytes # 1.1 10*3/uL (1.4-4.0); Lymphocytes % 8.9 % (21.3-54.2); Mean Corpuscular HGB Conc 30.1 GM/DL (32-36); Mean Corpuscular Hemoglobin 27 PG (27-34); Mean Corpuscular Volume 88.6 FL (87-102); Mean Platelet Volume 10.9 FL (9.6-12.0); Monocytes # 0.5 10*3/uL (0.11-0.8); Monocytes % 3.6 % (1.7-12.7); NRBC # 0.02 10*3/uL; Neutrophils # 10.7 10*3/uL (1.4-7.4); Neutrophils % 86.4 % (38.7-73.9); Platelet Count 301 T/CUMM (130-400); Red Blood Count 4.39 MC/CUMM (3.8-5.5); Red Cell Distribution Width 18.2 % (9.3-17.3); White Blood Count 12.4 T/CUMM (4-12)
[2018-12-03] MEDS ORDERED: METOCLOPRAMIDE 10 MG/2 ML VIAL IV STA (22:52)
[2018-12-03] MEDS ORDERED: diphenhydrAMINE 50 MG/1 ML VIAL IV STA (22:53)
[2018-12-03] MEDS ORDERED: SODIUM CHLORIDE 0.9% 1,000 ML IV STA (22:53)
[2018-12-03 22:58] LABS: PT Patient Result 10.7 SECS; Partial Thromboplastin Time 22.4 SECS (0-40)
[2018-12-03] MEDS ORDERED: MORPHINE 4 MG/1 ML VIAL IV STA ×2 (23:07→23:40)
[2018-12-03 23:12] LABS: Albumin 2.8 G/DL (3.4-5.0); Bilirubin,Total 1.3 MG/DL (0.2-1.0); Calcium 8.4 MG/DL (8.5-10.1); Osmolality,Calculated 278.7 MOS/KG (273-304); Potassium 3.6 MMOL/L (3.5-5.1)
[2018-12-04] MEDS ORDERED: HYDROmorphone 2 MG/1 ML VIAL IV STA ×2 (01:17→02:38)
[2018-12-04] MEDS ORDERED: SODIUM CHLORIDE 0.9% 2,000 ML IV STA (02:37)
[2018-12-04] MEDS ORDERED: ONDANSETRON 4 MG/2 ML VIAL ONE (02:45)
[2018-12-04] MEDS ORDERED: ONDANSETRON 4 MG/2 ML VIAL IV STA (02:45)
[2018-12-04 03:34] LABS: VBG HCO3 19.5 MEQ/L (24-28); VBG PCO2 30.7 MMHG (41-51); VBG PH 7.42; VBG PO2 175.2 MMHG (17-40)
[2018-12-04 03:45] LABS: Apearance,Urine CLEAR (Clear); Bilirubin,Urine Negative (Negative); Blood, Urine Small mg/dL (Negative); Glucose,Urine (UA) >=500 mg/dL (Negative); Ketones,Urine 20 mg/dL (Negative); Mucus,Urine Occasional /LPF (Occasional); Nitrite,Urine Negative (Negative); Protein,Urine 30 MG/DL; RBC,Urine 3 /HPF (0-4); Squamous Epithelial Cell,Urine Occasional /HPF (0-10); Urine Color Straw (Yellow); Urine Specific Gravity 1.006 (1.001-1.035); Urine Urobilinogen < 2.0 EU/DL (0.2-1.0)
[2018-12-04] MEDS ORDERED: ACETAMINOPHEN 325 MG TABLET PO PRN ×2 (03:56→11:55)
[2018-12-04] MEDS ORDERED: ONDANSETRON 4 MG/2 ML VIAL IV PRN (03:56)
[2018-12-04] MEDS ORDERED: methylPREDNISolone SOD SUC 125 MG/2 ML VIAL IV ONE (04:29)
[2018-12-04] MEDS ORDERED: diphenhydrAMINE 50 MG/1 ML VIAL IV STA (04:30)
[2018-12-04] MEDS: HYDROmorphone 2 MG/1 ML VIAL IV PRN ×3 (04:46→15:54)
[2018-12-04 06:30] LABS: Basophils % 0.2 % (0.0-0.8); Hematocrit 41.6 VOL% (35.7-47.0); Hemoglobin 12.7 GM/DL (12.0-16.0); Immature Granulocytes % 0.5 %; Lymphocytes # 0.7 10*3/uL (1.4-4.0); Lymphocytes % 3.8 % (21.3-54.2); Mean Corpuscular HGB Conc 30.5 GM/DL (32-36); Mean Corpuscular Hemoglobin 27 PG (27-34); Mean Corpuscular Volume 87.6 FL (87-102); Mean Platelet Volume 10.7 FL (9.6-12.0); Monocytes # 0.7 10*3/uL (0.11-0.8); Monocytes % 3.7 % (1.7-12.7); Neutrophils # 17.6 10*3/uL (1.4-7.4); Neutrophils % 91.8 % (38.7-73.9); Platelet Count 344 T/CUMM (130-400); Red Blood Count 4.75 MC/CUMM (3.8-5.5); Red Cell Distribution Width 18.6 % (9.3-17.3); White Blood Count 19.1 T/CUMM (4-12)
[2018-12-04 06:46] LABS: Albumin 2.8 G/DL (3.4-5.0); Bilirubin,Total 0.4 MG/DL (0.2-1.0); Calcium 7.5 MG/DL (8.5-10.1); Potassium 3.2 MMOL/L (3.5-5.1); Total Protein 6.3 G/DL (6.4-8.3)
[2018-12-04 07:02] LABS: Lymphocytes 4 % (20-55); Platelet Estimate Adequate; Segmented Neutrophils 94 % (50-85); Total Cells Counted 100
[2018-12-04 07:03] LABS: Hypochromasia 1+
[2018-12-04] MEDS ORDERED: METOPROLOL TARTRATE 5 MG/5 ML VIAL IV ONE (08:41)
[2018-12-04 09:46] LABS: Troponin I 0.368 NG/ML (0.00-0.045)
[2018-12-04] MEDS: PANTOPRAZOLE 40 MG TABLET PO SCH (10:49)
[2018-12-04] MEDS: ALPRAZolam 0.25 MG TABLET PO SCH ×3 (10:49→21:17)
[2018-12-04] MEDS: SERTRALINE 100 MG TABLET PO SCH (10:49)
[2018-12-04] MEDS: NITROGLYCERIN 2% OINT 1 INCH/GM PACK TOP SCH ×2 (10:54→21:19)
[2018-12-04] MEDS: cefOXitin 2,000 MG in SYRINGE 1 EACH IV SCH ×3 (10:54→20:51)
[2018-12-04] MEDS ORDERED: MAGNESIUM SULF RIDER 4 GM in PREMIX 1 EACH IV PRN (11:26)
[2018-12-04] MEDS: METOPROLOL TARTRATE 5 MG/5 ML VIAL IV SCH ×2 (11:50→17:06)
[2018-12-04] MEDS ORDERED: ALUMINUM/MAGNES/SIMETH MAX STR 30 ML UDCUP PO PRN (11:55)
[2018-12-04] MEDS ORDERED: MAGNESIUM HYDROXIDE SUSP 30 ML UDCUP PO PRN (11:55)
[2018-12-04] MEDS: MORPHINE ER 30 MG TABLET PO SCH ×2 (12:13→21:18)
[2018-12-04] MEDS: DEXTROSE 5% LACTATED RINGERS 1,000 ML IV SCH ×2 (15:48→15:49)
[2018-12-04] MEDS: VANCOMYCIN INJ 1,000 MG in SODIUM CHLORIDE 0.9% 250 ML IV SCH (15:49)
[2018-12-04] MEDS ORDERED: PROMETHAZINE INJ 12.5 MG in SODIUM CHLORIDE 0.9% 50 ML IV ONE (16:27)
[2018-12-04] MEDS: HydrOXYzine PAMOATE 25 MG CAPSULE PO PRN (16:43)
[2018-12-04] MEDS: METOCLOPRAMIDE 10 MG TABLET PO SCH ×2 (16:43→21:17)
[2018-12-04 17:43] LABS: Thyroid Stimulating Hormone 0.975 uIU/ml (0.358-3.74)
[2018-12-04] MEDS ORDERED: HYDROmorphone 2 MG/1 ML VIAL IV ONE (17:51)
[2018-12-04] MEDS: POTASSIUM CHLORIDE RIDER 10 MEQ in PREMIX 1 EACH IV PRN ×2 (20:59→22:59)
[2018-12-04] MEDS: MAGNESIUM SULF RIDER 2 GM in PREMIX 1 EACH IV PRN (21:00)
[2018-12-04] MEDS ORDERED: traZODone 50 MG TABLET PO SCH (21:00)
[2018-12-04] MEDS: ENOXAPARIN 40 MG/0.4 ML SYRINGE SUBCUT SCH (21:17)
[2018-12-04] MEDS: QUEtiapine 100 MG TABLET PO SCH (21:17)
[2018-12-04] MEDS: TAMSULOSIN 0.4 MG CAPSULE PO SCH (21:17)
[2018-12-04] MEDS: GABAPENTIN 600 MG TABLET PO SCH (21:19)
[2018-12-05] MEDS: METOPROLOL TARTRATE 5 MG/5 ML VIAL IV SCH ×3 (00:40→11:43)
[2018-12-05] MEDS: cefOXitin 2,000 MG in SYRINGE 1 EACH IV SCH ×4 (00:42→18:31)
[2018-12-05] MEDS: POTASSIUM CHLORIDE RIDER 10 MEQ in PREMIX 1 EACH IV PRN ×2 (00:51→02:30)
[2018-12-05] MEDS: DEXTROSE 5% LACTATED RINGERS 1,000 ML IV SCH ×3 (01:54→20:23)
[2018-12-05] MEDS: VANCOMYCIN INJ 1,000 MG in SODIUM CHLORIDE 0.9% 250 ML IV SCH ×2 (04:43→16:34)
[2018-12-05 07:51] LABS: Basophils % 0.1 % (0.0-0.8); Hematocrit 36.2 VOL% (35.7-47.0); Hemoglobin 11.1 GM/DL (12.0-16.0); Immature Granulocytes % 0.2 %; Immature Granulocytes Absolute 0.02 #; Lymphocytes # 0.9 10*3/uL (1.4-4.0); Lymphocytes % 9.9 % (21.3-54.2); Mean Corpuscular HGB Conc 30.7 GM/DL (32-36); Mean Corpuscular Hemoglobin 27 PG (27-34); Mean Corpuscular Volume 88.3 FL (87-102); Mean Platelet Volume 10.3 FL (9.6-12.0); Monocytes # 1.1 10*3/uL (0.11-0.8); Monocytes % 12.5 % (1.7-12.7); Neutrophils # 7.1 10*3/uL (1.4-7.4); Neutrophils % 77.3 % (38.7-73.9); Platelet Count 205 T/CUMM (130-400); Red Cell Distribution Width 18.6 % (9.3-17.3); White Blood Count 9.1 T/CUMM (4-12)
[2018-12-05] MEDS: MORPHINE ER 30 MG TABLET PO SCH (08:12)
[2018-12-05] MEDS: NITROGLYCERIN 2% OINT 1 INCH/GM PACK TOP SCH (08:12)
[2018-12-05] MEDS: GABAPENTIN 600 MG TABLET PO SCH ×2 (08:13→20:23)
[2018-12-05] MEDS: PANTOPRAZOLE 40 MG TABLET PO SCH (08:13)
[2018-12-05] MEDS: ALPRAZolam 0.25 MG TABLET PO SCH (08:13)
[2018-12-05] MEDS: METOCLOPRAMIDE 10 MG TABLET PO SCH ×3 (08:13→20:23)
[2018-12-05] MEDS: SERTRALINE 100 MG TABLET PO SCH (08:13)
[2018-12-05] MEDS: TOLTERODINE 2 MG TABLET PO SCH (08:16)
[2018-12-05 10:25] LABS: Calcium 7.3 MG/DL (8.5-10.1); Osmolality,Calculated 276.7 MOS/KG (273-304); Potassium 3.4 MMOL/L (3.5-5.1)
[2018-12-05] MEDS ORDERED: SODIUM CHLORIDE 0.9% 500 ML IV ONE ×2 (11:39→14:40)
[2018-12-05] MEDS ORDERED: NOREPINEPHRINE 4 MG/4 ML VIAL IV ONE (12:39)
[2018-12-05] MEDS: NOREPINEPHRINE 8 MG in SODIUM CHLORIDE 0.9% 242 ML IV PRN (12:44)
[2018-12-05] MEDS ORDERED: NALOXONE 0.4 MG/ML VIAL ONE (13:22)
[2018-12-05] MEDS ORDERED: NALOXONE 0.4 MG/ML VIAL IV ONE (13:26)
[2018-12-05] MEDS ORDERED: FLUMAZENIL 0.5 MG/5 ML VIAL IV ONE ×2 (14:27→14:29)
[2018-12-05] MEDS ORDERED: HYDROmorphone 2 MG/1 ML VIAL IV PRN (15:10)
[2018-12-05] MEDS ORDERED: KETOROLAC 30 MG/1 ML VIAL IV ONE (15:30)
[2018-12-05] MEDS: ENOXAPARIN 40 MG/0.4 ML SYRINGE SUBCUT SCH (20:23)
[2018-12-05] MEDS: TAMSULOSIN 0.4 MG CAPSULE PO SCH (20:23)
[2018-12-05] MEDS: QUEtiapine 100 MG TABLET PO SCH (20:23)
[2018-12-05] MEDS: KETOROLAC 30 MG/1 ML VIAL IV SCH (20:29)
[2018-12-06] MEDS: cefOXitin 2,000 MG in SYRINGE 1 EACH IV SCH ×4 (01:04→20:33)
[2018-12-06] MEDS: DEXTROSE 5% LACTATED RINGERS 1,000 ML IV SCH ×4 (01:44→14:06)
[2018-12-06] MEDS: NOREPINEPHRINE 8 MG in SODIUM CHLORIDE 0.9% 242 ML IV PRN (02:24)
[2018-12-06] MEDS: VANCOMYCIN INJ 1,000 MG in SODIUM CHLORIDE 0.9% 250 ML IV SCH ×2 (04:12→16:32)
[2018-12-06] MEDS: KETOROLAC 30 MG/1 ML VIAL IV SCH ×4 (04:12→20:35)
[2018-12-06 08:45] LABS: Basophils % 0.1 % (0.0-0.8); Eosinophils # 0.2 10*3/uL (0.0-0.87); Eosinophils % 2.2 % (0.00-10.9); Hematocrit 33.7 VOL% (35.7-47.0); Immature Granulocytes % 0.1 %; Immature Granulocytes Absolute 0.01 #; Lymphocytes # 1.1 10*3/uL (1.4-4.0); Mean Corpuscular HGB Conc 29.7 GM/DL (32-36); Mean Corpuscular Hemoglobin 27 PG (27-34); Mean Corpuscular Volume 91.6 FL (87-102); Mean Platelet Volume 10.5 FL (9.6-12.0); Monocytes # 0.5 10*3/uL (0.11-0.8); Monocytes % 7.9 % (1.7-12.7); Neutrophils % 73.7 % (38.7-73.9); Platelet Count 204 T/CUMM (130-400); Red Blood Count 3.68 MC/CUMM (3.8-5.5); Red Cell Distribution Width 18.7 % (9.3-17.3); White Blood Count 6.8 T/CUMM (4-12)
[2018-12-06] MEDS: TOLTERODINE 2 MG TABLET PO SCH (08:56)
[2018-12-06] MEDS: GABAPENTIN 600 MG TABLET PO SCH ×2 (08:57→20:35)
[2018-12-06] MEDS: METOCLOPRAMIDE 10 MG TABLET PO SCH ×3 (08:57→20:35)
[2018-12-06] MEDS: PANTOPRAZOLE 40 MG TABLET PO SCH (08:57)
[2018-12-06 09:10] LABS: Calcium 7.2 MG/DL (8.5-10.1); Osmolality,Calculated 295.1 MOS/KG (273-304); Potassium 3.2 MMOL/L (3.5-5.1)
[2018-12-06] MEDS: POTASSIUM CHLORIDE RIDER 10 MEQ in PREMIX 1 EACH IV PRN ×6 (09:39→22:01)
[2018-12-06] MEDS: DEXTROSE 5% 1,000 ML IV SCH (14:30)
[2018-12-06] MEDS: MAGNESIUM SULF RIDER 2 GM in PREMIX 1 EACH IV PRN (17:40)
[2018-12-06] MEDS: ALPRAZolam 0.25 MG TABLET PO PRN (19:12)
[2018-12-06] MEDS: ENOXAPARIN 40 MG/0.4 ML SYRINGE SUBCUT SCH (20:34)
[2018-12-06] MEDS: QUEtiapine 100 MG TABLET PO SCH (20:34)
[2018-12-06] MEDS: TAMSULOSIN 0.4 MG CAPSULE PO SCH (20:34)
[2018-12-07] MEDS: POTASSIUM CHLORIDE RIDER 10 MEQ in PREMIX 1 EACH IV PRN ×4 (00:05→06:57)
[2018-12-07] MEDS: traZODone 50 MG TABLET PO PRN ×2 (01:05→20:17)
[2018-12-07] MEDS: cefOXitin 2,000 MG in SYRINGE 1 EACH IV SCH ×4 (04:10→20:19)
[2018-12-07] MEDS: VANCOMYCIN INJ 1,250 MG in SODIUM CHLORIDE 0.9% 250 ML IV SCH ×2 (04:10→15:34)
[2018-12-07] MEDS: KETOROLAC 30 MG/1 ML VIAL IV SCH ×4 (04:10→20:33)
[2018-12-07 04:59] LABS: Basophils % 0.3 % (0.0-0.8); Eosinophils # 0.2 10*3/uL (0.0-0.87); Eosinophils % 5.6 % (0.00-10.9); Hematocrit 30.3 VOL% (35.7-47.0); Immature Granulocytes % 0.3 %; Immature Granulocytes Absolute 0.01 #; Lymphocytes # 0.9 10*3/uL (1.4-4.0); Lymphocytes % 26.6 % (21.3-54.2); Mean Corpuscular HGB Conc 29.7 GM/DL (32-36); Mean Corpuscular Hemoglobin 27 PG (27-34); Mean Platelet Volume 10.9 FL (9.6-12.0); Monocytes # 0.4 10*3/uL (0.11-0.8); Monocytes % 10.5 % (1.7-12.7); Neutrophils % 56.7 % (38.7-73.9); Platelet Count 153 T/CUMM (130-400); Red Blood Count 3.33 MC/CUMM (3.8-5.5); Red Cell Distribution Width 18.4 % (9.3-17.3); White Blood Count 3.5 T/CUMM (4-12)
[2018-12-07 05:27] LABS: Calcium 7.6 MG/DL (8.5-10.1); Osmolality,Calculated 289.3 MOS/KG (273-304); Potassium 3.4 MMOL/L (3.5-5.1)
[2018-12-07] MEDS ORDERED: POTASSIUM CHLORIDE 20 MEQ TABLET PO PRN (08:00)
[2018-12-07] MEDS: DEXTROSE 5% 1,000 ML IV SCH (08:12)
[2018-12-07] MEDS: TOLTERODINE 2 MG TABLET PO SCH (08:46)
[2018-12-07] MEDS: METOCLOPRAMIDE 10 MG TABLET PO SCH ×3 (08:47→20:18)
[2018-12-07] MEDS: GABAPENTIN 600 MG TABLET PO SCH ×2 (08:47→20:17)
[2018-12-07] MEDS: PANTOPRAZOLE 40 MG TABLET PO SCH (08:47)
[2018-12-07] MEDS: HydrOXYzine PAMOATE 25 MG CAPSULE PO PRN ×2 (08:49→15:34)
[2018-12-07] MEDS: QUEtiapine 100 MG TABLET PO SCH (20:17)
[2018-12-07] MEDS: TAMSULOSIN 0.4 MG CAPSULE PO SCH (20:18)
[2018-12-07] MEDS: ENOXAPARIN 40 MG/0.4 ML SYRINGE SUBCUT SCH (20:19)
[2018-12-07] MEDS: ALPRAZolam 0.25 MG TABLET PO PRN (22:32)
[2018-12-08] MEDS: KETOROLAC 30 MG/1 ML VIAL IV SCH ×3 (03:34→15:38)
[2018-12-08] MEDS: cefOXitin 2,000 MG in SYRINGE 1 EACH IV SCH ×3 (03:37→15:37)
[2018-12-08] MEDS: VANCOMYCIN INJ 1,250 MG in SODIUM CHLORIDE 0.9% 250 ML IV SCH (03:40)
[2018-12-08 08:16] LABS: Basophils % 0.4 % (0.0-0.8); Eosinophils # 0.3 10*3/uL (0.0-0.87); Eosinophils % 4.8 % (0.00-10.9); Hematocrit 32.6 VOL% (35.7-47.0); Hemoglobin 9.8 GM/DL (12.0-16.0); Immature Granulocytes % 0.4 %; Immature Granulocytes Absolute 0.02 #; Lymphocytes # 1.1 10*3/uL (1.4-4.0); Lymphocytes % 21.4 % (21.3-54.2); Mean Corpuscular HGB Conc 30.1 GM/DL (32-36); Mean Corpuscular Hemoglobin 27 PG (27-34); Mean Corpuscular Volume 90.8 FL (87-102); Mean Platelet Volume 9.7 FL (9.6-12.0); Monocytes # 0.3 10*3/uL (0.11-0.8); Monocytes % 5.3 % (1.7-12.7); Neutrophils # 3.6 10*3/uL (1.4-7.4); Neutrophils % 67.7 % (38.7-73.9); Platelet Count 172 T/CUMM (130-400); Red Blood Count 3.59 MC/CUMM (3.8-5.5); Red Cell Distribution Width 17.5 % (9.3-17.3); White Blood Count 5.2 T/CUMM (4-12)
[2018-12-08 08:35] LABS: Osmolality,Calculated 285.7 MOS/KG (273-304); Potassium 3.9 MMOL/L (3.5-5.1)
[2018-12-08] MEDS: METOCLOPRAMIDE 10 MG TABLET PO SCH ×2 (09:04→15:38)
[2018-12-08] MEDS: GABAPENTIN 600 MG TABLET PO SCH (09:04)
[2018-12-08] MEDS: PANTOPRAZOLE 40 MG TABLET PO SCH (09:04)
[2018-12-08] MEDS: TOLTERODINE 2 MG TABLET PO SCH (09:04)
[2018-12-08] MEDS: ALPRAZolam 0.25 MG TABLET PO PRN (10:21)
[2018-12-08 12:38] VITALS: BP 121/67
== END 2018-12-08 16:34 | disposition home health service (06) | DRG 342 ==
LOC: N.ED 21:07 → SUATTDRO 12-04 03:56 → N.EDINP 12-04 03:56 → N.3E 12-04 04:29 → N.ICU 12-04 14:43 → N.5E 12-07 18:46
PROVIDERS: ADMIT Surgery; ATTEND Internal Medicine

== ENCOUNTER 2019-04-04 19:17 | Inpatient (IN) ==
[2019-04-04] MEDS ORDERED: HYDROmorphone 2 MG/1 ML VIAL IV STA ×3 (19:55→22:41)
[2019-04-04] MEDS ORDERED: ONDANSETRON 4 MG/2 ML VIAL IV STA (19:55)
[2019-04-04] MEDS ORDERED: SODIUM CHLORIDE 0.9% 1,000 ML IV STA (19:55)
[2019-04-04 20:15] LABS: Basophils % 0.3 % (0.0-0.8); Hematocrit 46.1 VOL% (35.7-47.0); Hemoglobin 14.3 GM/DL (12.0-16.0); Immature Granulocytes % 0.5 %; Immature Granulocytes Absolute 0.06 #; Lymphocytes # 1.2 10*3/uL (1.4-4.0); Mean Corpuscular Volume 95.2 FL (87-102); Mean Platelet Volume 10.5 FL (9.6-12.0); Monocytes % 3.4 % (1.7-12.7); Neutrophils % 85.8 % (38.7-73.9); Platelet Count 326 T/CUMM (130-400); Red Blood Count 4.84 MC/CUMM (3.8-5.5); Red Cell Distribution Width 12.9 % (9.3-17.3); White Blood Count 12.3 T/CUMM (4-12)
[2019-04-04 20:27] LABS: Alanine Aminotransferase 54 U/L (13-56); Albumin 2.7 G/DL (3.4-5.0); Alkaline Phosphatase 104 U/L (45-117); Amylase 598 U/L (25-115); Aspartate Amino Transferase 35 U/L (0-37); Blood Urea Nitrogen 7 MG/DL (7-18); Glucose 163 MG/DL (74-106); Osmolality,Calculated 282.3 MOS/KG (273-304)
[2019-04-04 21:45] LABS: Apearance,Urine CLEAR (Clear); Bilirubin,Urine Negative (Negative); Blood, Urine Negative (Negative); Glucose,Urine (UA) Negative (Negative); Ketones,Urine 20 mg/dL (Negative); Mucus,Urine Occasional /LPF (Occasional); Nitrite,Urine Negative (Negative); Protein,Urine Negative; RBC,Urine 3 /HPF (0-4); Squamous Epithelial Cell,Urine Occasional /HPF (0-10); Urine Color Straw (Yellow); Urine Specific Gravity 1.009 (1.001-1.035); Urine Urobilinogen < 2.0 EU/DL (0.2-1.0); WBC,Urine 1 /HPF (0-6)
[2019-04-04] MEDS ORDERED: ONDANSETRON 4 MG/2 ML VIAL IV ONE (22:21)
[2019-04-04] MEDS ORDERED: BISACODYL 5 MG TABLET PO PRN (23:00)
[2019-04-04] MEDS ORDERED: diphenhydrAMINE CAP 25 MG CAPSULE PO PRN (23:00)
[2019-04-04] MEDS ORDERED: NICOTINE 21 MG/24 HR PATCH TRANSDERM PRN (23:00)
[2019-04-05] MEDS: SODIUM CHLORIDE 0.9% 1,000 ML IV SCH ×3 (00:32→16:28)
[2019-04-05] MEDS: ALPRAZolam 0.25 MG TABLET PO PRN ×2 (01:56→11:32)
[2019-04-05] MEDS: HYDROmorphone 2 MG/1 ML VIAL IV PRN ×4 (01:56→12:38)
[2019-04-05 04:51] LABS: Alanine Aminotransferase 35 U/L (13-56); Alkaline Phosphatase 78 U/L (45-117); Aspartate Amino Transferase 22 U/L (0-37); Bilirubin,Total < 0.39 MG/DL (0.2-1.0); Blood Urea Nitrogen 5 MG/DL (7-18); Calcium 8.2 MG/DL (8.5-10.1); Glucose 125 MG/DL (74-106); Osmolality,Calculated 278.3 MOS/KG (273-304); Total Protein 4.8 G/DL (6.4-8.3)
[2019-04-05] MEDS: ONDANSETRON 4 MG/2 ML VIAL IV PRN ×3 (07:22→16:24)
[2019-04-05 08:04] LABS: Basophils % 0.2 % (0.0-0.8); Eosinophils % 0.1 % (0.00-10.9); Hematocrit 39.3 VOL% (35.7-47.0); Immature Granulocytes % 0.5 %; Immature Granulocytes Absolute 0.04 #; Lymphocytes # 1.1 10*3/uL (1.4-4.0); Lymphocytes % 12.7 % (21.3-54.2); Mean Corpuscular HGB Conc 30.3 GM/DL (32-36); Mean Corpuscular Volume 98.3 FL (87-102); Mean Platelet Volume 11.2 FL (9.6-12.0); Monocytes % 7.7 % (1.7-12.7); Neutrophils % 78.8 % (38.7-73.9); Red Cell Distribution Width 13.1 % (9.3-17.3); White Blood Count 8.8 T/CUMM (4-12)
[2019-04-05 08:08] LABS: Hemoglobin 11.9 GM/DL (12.0-16.0); Platelet Count 233 T/CUMM (130-400)
[2019-04-05] MEDS: PROMETHAZINE 25 MG TABLET PO PRN (13:00)
[2019-04-05] MEDS ORDERED: METOCLOPRAMIDE 10 MG TABLET PO SCH (15:00)
[2019-04-05] MEDS ORDERED: BISACODYL 10 MG SUPP RECTAL ONE ×2 (15:53→21:22)
[2019-04-05] MEDS: POLYETHYLENE GLYCOL POWDER 17 GM PACK PO SCH (16:34)
[2019-04-05] MEDS: METOCLOPRAMIDE 10 MG/2 ML VIAL IV SCH ×2 (17:48→23:03)
[2019-04-05] MEDS: ACETAMINOPHEN 325 MG TABLET PO PRN (17:55)
[2019-04-05] MEDS: QUEtiapine 100 MG TABLET PO SCH (20:29)
[2019-04-05] MEDS: traZODone 50 MG TABLET PO SCH (20:29)
[2019-04-05] MEDS: PANTOPRAZOLE 40 MG TABLET PO SCH (20:30)
[2019-04-06] MEDS: SODIUM CHLORIDE 0.9% 1,000 ML IV SCH ×2 (01:36→16:55)
[2019-04-06] MEDS: ONDANSETRON 4 MG/2 ML VIAL IV PRN (04:15)
[2019-04-06] MEDS: ALPRAZolam 0.25 MG TABLET PO PRN (04:16)
[2019-04-06] MEDS: traMADol 50 MG TABLET PO PRN (05:01)
[2019-04-06] MEDS: METOCLOPRAMIDE 10 MG/2 ML VIAL IV SCH ×4 (05:02→23:41)
[2019-04-06] MEDS: PROMETHAZINE INJ 25 MG in SODIUM CHLORIDE 0.9% 50 ML IV PRN ×2 (08:48→16:57)
[2019-04-06] MEDS ORDERED: PANTOPRAZOLE 40 MG TABLET PO SCH (09:00)
[2019-04-06] MEDS ORDERED: KETOROLAC 30 MG/1 ML VIAL IV ONE (09:08)
[2019-04-06] MEDS ORDERED: KETOROLAC 30 MG/1 ML VIAL IM ONE (09:08)
[2019-04-06] MEDS: PANTOPRAZOLE 40 MG TABLET PO SCH ×2 (09:46→20:56)
[2019-04-06] MEDS: POLYETHYLENE GLYCOL POWDER 17 GM PACK PO SCH (09:46)
[2019-04-06 10:37] LABS: Apearance,Urine CLEAR (Clear); Bilirubin,Urine Negative (Negative); Blood, Urine Small mg/dL (Negative); Glucose,Urine (UA) Negative (Negative); Ketones,Urine 20 mg/dL (Negative); Mucus,Urine Occasional /LPF (Occasional); Nitrite,Urine Negative (Negative); Protein,Urine Negative; RBC,Urine 1 /HPF (0-4); Squamous Epithelial Cell,Urine Occasional /HPF (0-10); Urine Color Straw (Yellow); Urine Specific Gravity 1.008 (1.001-1.035); Urine Urobilinogen < 2.0 EU/DL (0.2-1.0)
[2019-04-06] MEDS ORDERED: MORPHINE 4 MG/1 ML VIAL IV PRN (11:16)
[2019-04-06] MEDS: SERTRALINE 100 MG TABLET PO SCH (11:18)
[2019-04-06] MEDS: HYDROmorphone 2 MG/1 ML VIAL IV PRN ×3 (13:07→20:57)
[2019-04-06] MEDS: QUEtiapine 100 MG TABLET PO SCH (20:56)
[2019-04-06] MEDS: HydrOXYzine PAMOATE 25 MG CAPSULE PO PRN (20:56)
[2019-04-06] MEDS: traZODone 50 MG TABLET PO SCH (20:56)
[2019-04-07] MEDS: traMADol 50 MG TABLET PO PRN (02:44)
[2019-04-07 05:28] LABS: Basophils % 0.1 % (0.0-0.8); Hematocrit 50.3 VOL% (35.7-47.0); Immature Granulocytes % 0.6 %; Immature Granulocytes Absolute 0.07 #; Lymphocytes % 8.4 % (21.3-54.2); Mean Corpuscular Volume 92.6 FL (87-102); Mean Platelet Volume 10.7 FL (9.6-12.0); Monocytes % 9.3 % (1.7-12.7); Neutrophils % 81.6 % (38.7-73.9); Platelet Count 277 T/CUMM (130-400); Red Cell Distribution Width 12.9 % (9.3-17.3)
[2019-04-07 05:37] LABS: Hemoglobin 16.1 GM/DL (12.0-16.0); Red Blood Count 5.43 MC/CUMM (3.8-5.5); White Blood Count 11.7 T/CUMM (4-12)
[2019-04-07 05:37] LABS: Calcium 8.6 MG/DL (8.5-10.1); Osmolality,Calculated 276.5 MOS/KG (273-304)
[2019-04-07] MEDS: METOCLOPRAMIDE 10 MG/2 ML VIAL IV SCH ×3 (05:48→18:29)
[2019-04-07] MEDS: SODIUM CHLORIDE 0.9% 1,000 ML IV SCH ×2 (07:07→21:05)
[2019-04-07] MEDS: PROMETHAZINE INJ 25 MG in SODIUM CHLORIDE 0.9% 50 ML IV PRN (07:39)
[2019-04-07] MEDS: PANTOPRAZOLE 40 MG TABLET PO SCH ×2 (11:03→21:06)
[2019-04-07] MEDS: SERTRALINE 100 MG TABLET PO SCH (11:06)
[2019-04-07] MEDS: POLYETHYLENE GLYCOL POWDER 17 GM PACK PO SCH (11:11)
[2019-04-07] MEDS: SODIUM CHLOR 0.9% KCL 20 MEQ 20 MEQ/1,000 ML BAG IV SCH ×2 (12:53→20:58)
[2019-04-07] MEDS ORDERED: MAGNESIUM SULF RIDER 4 GM in PREMIX 1 EACH IV PRN (16:35)
[2019-04-07] MEDS: traZODone 50 MG TABLET PO SCH (21:05)
[2019-04-07] MEDS: QUEtiapine 100 MG TABLET PO SCH (21:06)
[2019-04-07] MEDS: HYDROmorphone 2 MG/1 ML VIAL IV PRN (21:07)
[2019-04-08] MEDS: METOCLOPRAMIDE 10 MG/2 ML VIAL IV SCH ×4 (00:40→19:01)
[2019-04-08] MEDS: HYDROmorphone 2 MG/1 ML VIAL IV PRN ×3 (02:34→14:49)
[2019-04-08] MEDS: PROMETHAZINE 25 MG TABLET PO PRN ×3 (02:38→14:48)
[2019-04-08] MEDS: POTASSIUM CHLORIDE RIDER 10 MEQ in PREMIX 1 EACH IV PRN ×3 (03:08→09:28)
[2019-04-08] MEDS: SODIUM CHLOR 0.9% KCL 20 MEQ 20 MEQ/1,000 ML BAG IV SCH ×2 (05:48→18:23)
[2019-04-08 05:59] LABS: Basophils % 0.2 % (0.0-0.8); Hemoglobin 15.6 GM/DL (12.0-16.0); Immature Granulocytes % 0.2 %; Immature Granulocytes Absolute 0.03 #; Lymphocytes # 1.2 10*3/uL (1.4-4.0); Lymphocytes % 9.9 % (21.3-54.2); Mean Corpuscular HGB Conc 32.5 GM/DL (32-36); Mean Corpuscular Volume 92.5 FL (87-102); Mean Platelet Volume 10.7 FL (9.6-12.0); Monocytes % 10.7 % (1.7-12.7); Platelet Count 249 T/CUMM (130-400); Red Blood Count 5.19 MC/CUMM (3.8-5.5); Red Cell Distribution Width 13.1 % (9.3-17.3); White Blood Count 12.3 T/CUMM (4-12)
[2019-04-08 06:41] LABS: Albumin 2.1 G/DL (3.4-5.0); Bilirubin,Total 0.4 MG/DL (0.2-1.0); Calcium 8.6 MG/DL (8.5-10.1); Osmolality,Calculated 280.3 MOS/KG (273-304); Total Protein 5.3 G/DL (6.4-8.3)
[2019-04-08] MEDS ORDERED: LACTULOSE 20 GM/30 ML UDCUP PO PRN (08:19)
[2019-04-08] MEDS: POLYETHYLENE GLYCOL POWDER 17 GM PACK PO SCH (09:22)
[2019-04-08] MEDS: PANTOPRAZOLE 40 MG TABLET PO SCH ×2 (09:22→21:21)
[2019-04-08] MEDS: SERTRALINE 100 MG TABLET PO SCH (09:22)
[2019-04-08] MEDS: MAGNESIUM SULF RIDER 2 GM in PREMIX 1 EACH IV PRN (12:54)
[2019-04-08] MEDS ORDERED: methylPREDNISolone SOD SUC 125 MG/2 ML VIAL IV ONE (19:43)
[2019-04-08] MEDS ORDERED: diphenhydrAMINE 50 MG/1 ML VIAL IV ONE (19:43)
[2019-04-08] MEDS: QUEtiapine 100 MG TABLET PO SCH (21:21)
[2019-04-08] MEDS: traZODone 50 MG TABLET PO SCH (21:21)
[2019-04-09] MEDS: HYDROmorphone 2 MG/1 ML VIAL IV PRN ×5 (02:10→20:50)
[2019-04-09] MEDS: METOCLOPRAMIDE 10 MG/2 ML VIAL IV SCH ×4 (02:33→19:47)
[2019-04-09] MEDS: POTASSIUM CHLORIDE RIDER 10 MEQ in PREMIX 1 EACH IV PRN ×2 (02:37→18:36)
[2019-04-09] MEDS: SODIUM CHLOR 0.9% KCL 20 MEQ 20 MEQ/1,000 ML BAG IV SCH ×2 (04:29→18:35)
[2019-04-09] MEDS ORDERED: LACTATED RINGERS 1,000 ML IV SCH (08:00)
[2019-04-09] MEDS ORDERED: PROPOFOL 200 MG/20 ML VIAL IV ONE (09:00)
[2019-04-09] MEDS ORDERED: LIDOCAINE 2% 5 ML VIAL ONE (09:00)
[2019-04-09] MEDS ORDERED: ETOMIDATE 20 MG/10 ML VIAL IV ONE (09:00)
[2019-04-09] MEDS ORDERED: PHENYLEPHRINE 1 MG/10 ML SYRINGE IV ONE (09:00)
[2019-04-09] MEDS: POLYETHYLENE GLYCOL POWDER 17 GM PACK PO SCH (11:16)
[2019-04-09] MEDS: CHOLECALCIFEROL 5,000 UNIT TABLET PO SCH (11:16)
[2019-04-09] MEDS: PANTOPRAZOLE 40 MG TABLET PO SCH ×2 (11:16→20:50)
[2019-04-09] MEDS: SERTRALINE 100 MG TABLET PO SCH (11:17)
[2019-04-09] MEDS: PROMETHAZINE 25 MG TABLET PO PRN ×2 (12:39→17:55)
[2019-04-09] MEDS: SUCRALFATE 1 GM/10 ML UDCUP PO SCH ×2 (15:34→20:50)
[2019-04-09] MEDS: QUEtiapine 100 MG TABLET PO SCH (20:50)
[2019-04-09] MEDS: traZODone 50 MG TABLET PO SCH (20:50)
[2019-04-10] MEDS: METOCLOPRAMIDE 10 MG/2 ML VIAL IV SCH ×4 (00:48→17:13)
[2019-04-10] MEDS: SODIUM CHLOR 0.9% KCL 20 MEQ 20 MEQ/1,000 ML BAG IV SCH ×4 (06:33→16:50)
[2019-04-10] MEDS: CHOLECALCIFEROL 5,000 UNIT TABLET PO SCH (08:02)
[2019-04-10] MEDS: SUCRALFATE 1 GM/10 ML UDCUP PO SCH ×4 (08:03→21:26)
[2019-04-10] MEDS: PANTOPRAZOLE 40 MG TABLET PO SCH ×2 (08:03→21:26)
[2019-04-10] MEDS: SERTRALINE 100 MG TABLET PO SCH (08:03)
[2019-04-10 08:05] LABS: Basophils % 0.1 % (0.0-0.8); Eosinophils # 0.1 10*3/uL (0.0-0.87); Eosinophils % 0.7 % (0.00-10.9); Hematocrit 39.3 VOL% (35.7-47.0); Immature Granulocytes % 0.4 %; Immature Granulocytes Absolute 0.04 #; Lymphocytes # 1.3 10*3/uL (1.4-4.0); Lymphocytes % 13.4 % (21.3-54.2); Mean Corpuscular HGB Conc 30.8 GM/DL (32-36); Mean Corpuscular Volume 95.6 FL (87-102); Mean Platelet Volume 10.4 FL (9.6-12.0); Monocytes % 9.3 % (1.7-12.7); Neutrophils % 76.1 % (38.7-73.9); Red Cell Distribution Width 13.3 % (9.3-17.3); White Blood Count 9.8 T/CUMM (4-12)
[2019-04-10] MEDS: POLYETHYLENE GLYCOL POWDER 17 GM PACK PO SCH (08:05)
[2019-04-10 08:08] LABS: Hemoglobin 12.1 GM/DL (12.0-16.0); Platelet Count 163 T/CUMM (130-400); Red Blood Count 4.11 MC/CUMM (3.8-5.5)
[2019-04-10 08:27] LABS: Calcium 8.1 MG/DL (8.5-10.1); Osmolality,Calculated 284.7 MOS/KG (273-304)
[2019-04-10] MEDS: MAGNESIUM SULF RIDER 2 GM in PREMIX 1 EACH IV PRN (10:04)
[2019-04-10] MEDS: HYDROmorphone 2 MG/1 ML VIAL IV PRN ×3 (13:13→23:08)
[2019-04-10] MEDS: ONDANSETRON 4 MG/2 ML VIAL IV PRN (18:20)
[2019-04-10] MEDS: traZODone 50 MG TABLET PO SCH (21:26)
[2019-04-10] MEDS: QUEtiapine 100 MG TABLET PO SCH (21:26)
[2019-04-10] MEDS: HydrOXYzine PAMOATE 25 MG CAPSULE PO PRN (21:33)
[2019-04-11] MEDS: METOCLOPRAMIDE 10 MG/2 ML VIAL IV SCH ×4 (01:12→17:12)
[2019-04-11] MEDS: SODIUM CHLOR 0.9% KCL 20 MEQ 20 MEQ/1,000 ML BAG IV SCH ×3 (01:50→17:14)
[2019-04-11 05:12] LABS: Basophils % 0.2 % (0.0-0.8); Eosinophils # 0.2 10*3/uL (0.0-0.87); Eosinophils % 4.1 % (0.00-10.9); Hematocrit 36.5 VOL% (35.7-47.0); Hemoglobin 11.1 GM/DL (12.0-16.0); Immature Granulocytes % 0.3 %; Immature Granulocytes Absolute 0.02 #; Lymphocytes # 1.5 10*3/uL (1.4-4.0); Lymphocytes % 24.9 % (21.3-54.2); Mean Corpuscular HGB Conc 30.4 GM/DL (32-36); Mean Corpuscular Volume 97.3 FL (87-102); Mean Platelet Volume 10.7 FL (9.6-12.0); Monocytes % 8.2 % (1.7-12.7); Neutrophils % 62.3 % (38.7-73.9); Platelet Count 146 T/CUMM (130-400); Red Blood Count 3.75 MC/CUMM (3.8-5.5); Red Cell Distribution Width 13.3 % (9.3-17.3); White Blood Count 5.9 T/CUMM (4-12)
[2019-04-11 05:43] LABS: Osmolality,Calculated 286.6 MOS/KG (273-304)
[2019-04-11] MEDS: SERTRALINE 100 MG TABLET PO SCH (08:31)
[2019-04-11] MEDS: SUCRALFATE 1 GM/10 ML UDCUP PO SCH ×4 (08:31→21:35)
[2019-04-11] MEDS: CHOLECALCIFEROL 5,000 UNIT TABLET PO SCH (08:31)
[2019-04-11] MEDS: PANTOPRAZOLE 40 MG TABLET PO SCH ×2 (08:32→21:34)
[2019-04-11] MEDS: POLYETHYLENE GLYCOL POWDER 17 GM PACK PO SCH (08:32)
[2019-04-11] MEDS: HYDROmorphone 2 MG/1 ML VIAL IV PRN ×3 (10:10→19:54)
[2019-04-11] MEDS ORDERED: ALBUTEROL/IPRATROPIUM 3 ML NEB RESP TX ONE (10:26)
[2019-04-11] MEDS: PROMETHAZINE 25 MG TABLET PO PRN (20:02)
[2019-04-11] MEDS: QUEtiapine 100 MG TABLET PO SCH (21:34)
[2019-04-11] MEDS: traZODone 50 MG TABLET PO SCH (21:34)
[2019-04-12] MEDS: METOCLOPRAMIDE 10 MG/2 ML VIAL IV SCH ×4 (00:39→17:02)
[2019-04-12] MEDS: SODIUM CHLOR 0.9% KCL 20 MEQ 20 MEQ/1,000 ML BAG IV SCH ×4 (00:42→22:01)
[2019-04-12] MEDS: SERTRALINE 100 MG TABLET PO SCH (09:48)
[2019-04-12] MEDS: PANTOPRAZOLE 40 MG TABLET PO SCH ×2 (09:48→20:45)
[2019-04-12] MEDS: CHOLECALCIFEROL 5,000 UNIT TABLET PO SCH (09:48)
[2019-04-12] MEDS: POLYETHYLENE GLYCOL POWDER 17 GM PACK PO SCH (09:48)
[2019-04-12] MEDS: SUCRALFATE 1 GM/10 ML UDCUP PO SCH ×4 (09:48→20:44)
[2019-04-12] MEDS: HYDROmorphone 2 MG/1 ML VIAL IV PRN (13:25)
[2019-04-12] MEDS: traMADol 50 MG TABLET PO PRN (19:25)
[2019-04-12] MEDS: QUEtiapine 100 MG TABLET PO SCH (20:45)
[2019-04-12] MEDS: DICLOFENAC 1% GEL 100 GM TUBE TOP SCH (20:45)
[2019-04-12] MEDS: traZODone 50 MG TABLET PO SCH (20:45)
[2019-04-13] MEDS: traMADol 50 MG TABLET PO PRN ×2 (04:10→09:53)
[2019-04-13] MEDS: METOCLOPRAMIDE 10 MG/2 ML VIAL IV SCH ×4 (07:37→17:56)
[2019-04-13] MEDS: CHOLECALCIFEROL 5,000 UNIT TABLET PO SCH (08:14)
[2019-04-13] MEDS: SERTRALINE 100 MG TABLET PO SCH (08:15)
[2019-04-13] MEDS: SUCRALFATE 1 GM/10 ML UDCUP PO SCH ×4 (08:15→20:23)
[2019-04-13] MEDS: LIDOCAINE 5% PATCH TRANSDERM SCH (08:15)
[2019-04-13] MEDS: PANTOPRAZOLE 40 MG TABLET PO SCH ×2 (08:15→20:24)
[2019-04-13] MEDS: DICLOFENAC 1% GEL 100 GM TUBE TOP SCH ×3 (08:16→20:24)
[2019-04-13] MEDS: POLYETHYLENE GLYCOL POWDER 17 GM PACK PO SCH (08:16)
[2019-04-13] MEDS: SODIUM CHLOR 0.9% KCL 20 MEQ 20 MEQ/1,000 ML BAG IV SCH ×2 (09:55→17:56)
[2019-04-13] MEDS: QUEtiapine 100 MG TABLET PO SCH (20:24)
[2019-04-13] MEDS: traZODone 50 MG TABLET PO SCH (20:24)
[2019-04-14] MEDS: METOCLOPRAMIDE 10 MG/2 ML VIAL IV SCH ×3 (00:17→11:44)
[2019-04-14] MEDS: DICLOFENAC 1% GEL 100 GM TUBE TOP SCH (08:58)
[2019-04-14] MEDS: SERTRALINE 100 MG TABLET PO SCH (08:58)
[2019-04-14] MEDS: LIDOCAINE 5% PATCH TRANSDERM SCH (08:58)
[2019-04-14] MEDS: SUCRALFATE 1 GM/10 ML UDCUP PO SCH ×2 (08:59→11:44)
[2019-04-14] MEDS: POLYETHYLENE GLYCOL POWDER 17 GM PACK PO SCH (08:59)
[2019-04-14] MEDS: PANTOPRAZOLE 40 MG TABLET PO SCH (08:59)
[2019-04-14] MEDS: CHOLECALCIFEROL 5,000 UNIT TABLET PO SCH (08:59)
[2019-04-14 12:42] VITALS: BP 129/74
[2019-04-14] MEDS ORDERED: HEPARIN LOCK FLUSH 500 UNIT/5 ML SYRINGE IV ONE (13:40)
[2019-04-14] MEDS: ACETAMINOPHEN 325 MG TABLET PO PRN (13:57)
== END 2019-04-14 15:19 | disposition home health service (06) | DRG 389 ==
LOC: N.EDINP 19:17 → N.ED 19:17 → SUATTDRO 23:00 → N.4E 04-05 00:05 → SUATTDRO 04-06 14:09
PROVIDERS: ADMIT Internal Medicine; ATTEND Hospitalist